=== PATIENT | female | born 1940 | race Caucasian/White ===

== ENCOUNTER 2016-08-30 10:19 | Day surgery (SDC) | payer MEDICARE ==
[2016-08-24 14:30] VITALS: BMI 23.6
[2016-08-30 11:08] VITALS: RESP 16; TEMP 97.6
[2016-08-30] MEDS: LACTATED RINGERS 1,000 ML IV SCH ×2 (11:18→11:37)
[2016-08-30] MEDS ORDERED: LIDOCAINE 1% INJ 10MG/ML (20 ML MDV) ONE (11:37)
[2016-08-30] MEDS ORDERED: PROPOFOL 10 MG/ML 20 ML VIAL IV ONE (11:37)
[2016-08-30] MEDS ORDERED: ePHEDrine 50 MG/ML 1 ML AMP ONE (11:37)
--- NOTE | 2016-08-30 12:01 | P.PCN ---
Date of Procedure: 08/30/16 Procedure(s) Performed: Procedure: Total colonoscopy. Preoperative diagnosis: Screening for neoplasia. Postoperative diagnosis: Sigmoid diverticulosis with no evidence of acute diverticulitis, strictures, polyps or cancer. Preparation: HalfLytely prep. Sedation: Was provided by anesthesia. Brief clinical history: The patient is a 76-year-old female who is scheduled for this evaluation for screening for neoplasia because of family history of colon cancer and personal history of polyps. She has no abdominal complaints, bleeding or anemia. Procedure: With the patient on her left lateral decubitus position and after informed consent and adequate sedation, the perianal area was inspected and it did not show any fissures or fistulas. There were no masses felt on digital rectal examination. The Olympus CFQ 160L video colonoscope was then inserted in the rectum in the usual fashion and advanced to the cecum. The preparation was good. The mucosa appeared healthy. There were several diverticular orifices seen scattered in the distal sigmoid but I saw no evidence of acute diverticulitis or strictures. No polyps or tumors were seen. I retroflexed endoscope in the rectum then the endoscope was withdrawn. The patient tolerated the procedure well. Plan: The patient was reassured. Discussed dietary measures. At her age, I did not schedule a repeat exam in 5 years and that can be kept as a contingency based on her overall health at that time. She will discuss that with you.
[2016-08-30 12:23] VITALS: BP 142/65; PULSE 60
== END 2016-08-30 12:39 | disposition home or self-care (01) ==
LOC: ORWHC2ENDO 10:19
DX: Z12.11 Encounter for screening for malignant neoplasm of colon (principal); K57.30 Diverticulosis of large intestine without perforation or abscess without bleeding; I10 Essential (primary) hypertension; E78.5 Hyperlipidemia, unspecified; E07.9 Disorder of thyroid, unspecified; M19.90 Unspecified osteoarthritis, unspecified site; R32 Unspecified urinary incontinence; F32.9 Major depressive disorder, single episode, unspecified; F17.200 Nicotine dependence, unspecified, uncomplicated; Z86.010 Personal history of colon polyps; Z80.0 Family history of malignant neoplasm of digestive organs; Z79.82 Long term (current) use of aspirin; Z79.899 Other long term (current) drug therapy
CPT/HCPCS: G0105; J2001; J2704; 99153

== ENCOUNTER → 2017-02-06 | Outpatient (CLI) | payer MEDICARE ==
--- NOTE | 2017-02-07 08:29 | MM ---
Reason for exam: screening (asymptomatic). Last mammogram was performed 1 year and 1 month ago. History: Patient is postmenopausal and history of other cancer. Physical Findings: A clinical breast exam by your physician is recommended on an annual basis and results should be correlated with mammographic findings. MG Screening Mammo w CAD Bilateral CC and MLO view(s) were taken. Prior study comparison: December 29, 2015, bilateral MG screening mammo w CAD. October 07, 2014, bilateral MG screening mammo w CAD. October 06, 2013, bilateral digital screening mammo w/CAD. There are scattered fibroglandular densities. Finding: There are typically benign round calcifications in the right breast. There is no discrete abnormality. ASSESSMENT: Benign, BI-RAD 2 RECOMMENDATION: Routine screening mammogram of both breasts in 1 year.
== END | disposition home or self-care (01) ==
LOC: RADMAMWWP 12:25
PROVIDERS: ATTEND Family Medicine
DX: Z12.31 Encounter for screening mammogram for malignant neoplasm of breast (principal)

== ENCOUNTER → 2018-02-21 | Outpatient (CLI) | payer MEDICARE ==
--- NOTE | 2018-03-03 11:48 | MM ---
Reason for exam: screening (asymptomatic). Last mammogram was performed 1 year ago. History: Patient is postmenopausal and history of other cancer. Physical Findings: A clinical breast exam by your physician is recommended on an annual basis and results should be correlated with mammographic findings. MG 3D Screening Mammo W/Cad Bilateral CC and MLO view(s) were taken. Prior study comparison: February 06, 2017, bilateral MG screening mammo w CAD. December 29, 2015, bilateral MG screening mammo w CAD. The breast tissue is heterogeneously dense. This may lower the sensitivity of mammography. There is no discrete abnormality. No significant changes when compared with prior studies. ASSESSMENT: Negative, BI-RAD 1 RECOMMENDATION: Routine screening mammogram of both breasts in 1 year.
== END | disposition home or self-care (01) ==
LOC: RADMAMWWP 11:40
PROVIDERS: ATTEND Family Medicine
DX: Z12.31 Encounter for screening mammogram for malignant neoplasm of breast (principal)
CPT/HCPCS: 77063; 77067

== ENCOUNTER → 2019-02-09 | Outpatient (CLI) | payer MEDICARE ==
--- NOTE | 2019-02-09 11:17 | XR ---
EXAMINATION TYPE: XR chest 2V DATE OF EXAM: 02/09/2019 COMPARISON: NONE TECHNIQUE: PA and lateral views submitted. HISTORY: COPD FINDINGS: The lungs are clear and there is no pneumothorax, pleural effusion, or focal pneumonia. Biapical pl eural thickening. Atherosclerotic change aorta. Hyperinflation suggests COPD. No overt failure. IMPRESSION: 1. No acute process. Correlate for COPD.
== END | disposition home or self-care (01) ==
LOC: RADXRMAIN 10:27
PROVIDERS: ATTEND Family Medicine
DX: J44.9 Chronic obstructive pulmonary disease, unspecified (principal)
CPT/HCPCS: 71046

== ENCOUNTER 2019-04-20 10:13 | Observation (INO) | payer MEDICARE ==
[2019-04-20] MEDS ORDERED: ASPIRIN 81 MG PO STA (10:38)
[2019-04-20] MEDS ORDERED: NITROGLYCERIN OINT 1 INCH/GM PACKET TOPICAL STA (10:38)
--- NOTE | 2019-04-20 10:45 | ED ---
General Adult HPI - General Chief complaint: Chest Pain Stated complaint: chest discomfort Time Seen by Provider: 04/20/19 10:15 Source: patient, RN notes reviewed Mode of arrival: ambulatory Limitations: no limitations - History of Present Illness Initial comments: This is an 79-year-old female presents emergency Department complaining of chest pain. Patient states at 3:30 this morning she started having chest pain lasts about 45 minutes. Patient states his discomfort not a very sharp pain. Patient states he went away she woke up and at 8:30 she had pain again it lasted about half an hour again it was significant discomfort but no sharp pain. Patient states still there is very little residual heaviness on her chest. Patient denies any radiation of the pain. Patient denies any shortness of breath or difficulty breathing. Patient denies any diaphoretic episodes. Patient denies any nausea. Patient denies any abdominal pain patient denies any vomiting or diarrhea. Patient denies any recent fever chills or cough. Patient states she has a 62 year history of smoking. Patient denies any swelling to the legs or calf tenderness. Patient denies any lightheadedness dizziness nursing about so. Patient denies headache patient denies numbness weakness. - Related Data Home Medications Medication Instructions Recorded Confirmed Levothyroxine Sodium [Synthroid] 25 mcg PO DAILY 08/24/16 04/20/19 Lovastatin [Mevacor] 10 mg PO W/SUPPER 08/24/16 04/20/19 [place]-3 Fatty Acids/Fish Oil [Fish 2 cap PO HS 08/24/16 04/20/19 Oil 1,000 mg Softgel] amLODIPine BES/OLMESARTAN MED 1 tab PO W/SUPPER 08/24/16 04/20/19 [amLODIPine BES/OLMESARTAN MED 10-20 mg] Oxybutynin Chloride [Ditropan XL] 5 mg PO DAILY 04/20/19 04/20/19 Allergies Allergy/AdvReac Type Severity Reaction Status Date / Time No Known Allergies Allergy Verified 04/20/19 10:50 Review of Systems ROS Statement: Those systems with pertinent positive or pertinent negative responses have been documented in the HPI. ROS Other: All systems not noted in ROS Statement are negative. Past Medical History Past Medical History: Cancer, Hyperlipidemia, Hypertension, Osteoarthritis (OA), Thyroid Disorder Additional Past Medical History / Comment(s): urinary incontinence, hx skin cancer History of Any Multi-Drug Resistant Organisms: None Reported Past Surgical History: Hysterectomy, Orthopedic Surgery Additional Past Surgical History / Comment(s): skin cancer removed from nose and shoulder, misael cataracts, rotator cuff left shoulder Past Anesthesia/Blood Transfusion Reactions: No Reported Reaction Past Psychological History: Depression Smoking Status: Current every day smoker Past Alcohol Use History: None Reported Past Drug Use History: None Reported - Past Family History Mother Family Medical History: Cancer Additional Family Medical History / Comment(s): colon General Exam - General Exam Comments Initial Comments: GENERAL: Patient is well-developed and well-nourished. Patient is nontoxic and well- hydrated and is in mild distress. ENT: Neck is soft and supple. No significant lymphadenopathy is noted. Oropharynx is clear. Moist mucous membranes. Neck has full range of motion without elicit ing any pain. EYES: The sclera were anicteric and conjunctiva were pink and moist. Extraocular m ovements were intact and pupils were equal round and reactive to light. Eyelids were unremarkable. PULMONARY: Unlabored respirations. Good breath sounds bilaterally. No audible rales rhonchi or wheezing was noted. CARDIOVASCULAR: There is a regular rate and rhythm without any murmurs gallops or rubs. ABDOMEN: Soft and nontender with normal bowel sounds. No palpable organomegaly was noted. There is no palpable pulsatile mass. SKIN: Skin is clear with no lesions or rashes and otherwise unremarkable. NEUROLOGIC: Patient is alert and oriented x3. Cranial nerves II through XII are grossly intact. Motor and sensory are also intact. Normal speech, volume and content. Symmetrical smile. MUSCULOSKELETAL: Normal extremities with adequate strength and full range of motion. No lower extremity swelling or edema. No calf tenderness. LYMPHATICS: No significant lymphadenopathy is noted PSYCHIATRIC: Normal psychiatric evaluation. Limitations: no limitations Course Vital Signs 04/20/19 10:16 Temperature 97.8 F Pulse Rate 69 Respiratory 17 Rate Blood Pressure 161/84 O2 Sat by Pulse 99 Oximetry Medical Decision Making - Medical Decision Making EKG shows normal sinus rhythm at 64 bpm ME interval is on a 48 QRSs 86 QT interval 412 QTC is 425. Patient's EKG shows no ST segment elevation or depression. Patient's chest x-ray shows no acute abnormalities. I went back into the room and I discussed results with the patient and family she was no longer having any discomfort at this time. I started the patient on heparin because of unstable angina. I spoke with Dr. Rivera agreed to admit the patient admitted the patient I wrote admitting orders I continued heparin and aspirin Nitropaste on the floor. - Lab Data Result diagrams: 04/20/19 10:30 04/20/19 10:30 Lab Results 04/20/19 04/20/19 04/20/19 Range/Units 10:30 10:30 10:30 WBC 5.2 (3.8-10.6) k/uL RBC 4.45 (3.80-5.40) m/uL Hgb 13.6 (11.4-16.0) gm/dL Hct 40.7 (34.0-46.0) % MCV 91.6 (80.0-100.0) fL MCH 30.5 (25.0-35.0) pg MCHC 33.3 (31.0-37.0) g/dL RDW 13.3 (11.5-15.5) % Plt Count 182 (150-450) k/uL Neutrophils % 64 % Lymphocytes % 28 % Monocytes % 4 % Eosinophils % 1 % Basophils % 1 % Neutrophils # 3.3 (1.3-7.7) k/uL Lymphocytes # 1.5 (1.0-4.8) k/uL Monocytes # 0.2 (0-1.0) k/uL Eosinophils # 0.1 (0-0.7) k/uL Basophils # 0.0 (0-0.2) k/uL PT 10.0 (9.0-12.0) sec INR 0.9 (<1.2) APTT 23.6 (22.0-30.0) sec Sodium 140 (137-145) mmol/L Potassium 3.9 (3.5-5.1) mmol/L Chloride 105 (98-107) mmol/L Carbon Dioxide 27 (22-30) mmol/L Anion Gap 8 mmol/L BUN 12 (7-17) mg/dL Creatinine 0.53 (0.52-1.04) mg/dL Est GFR (CKD-EPI)AfAm >90 (>60 ml/min/1.73 sqM) Est GFR (CKD-EPI)NonAf 90 (>60 ml/min/1.73 sqM) Glucose 96 (74-99) mg/dL Calcium 9.7 (8.4-10.2) mg/dL Magnesium 1.9 (1.6-2.3) mg/dL Total Bilirubin 0.5 (0.2-1.3) mg/dL AST 24 (14-36) U/L ALT 18 (9-52) U/L Alkaline Phosphatase 115 (38-126) U/L Troponin I (0.000-0.034) ng/mL Total Protein 7.0 (6.3-8.2) g/dL Albumin 4.6 (3.5-5.0) g/dL 04/20/19 Range/Units 10:30 WBC (3.8-10.6) k/uL RBC (3.80-5.40) m/uL Hgb (11.4-16.0) gm/dL Hct (34.0-46.0) % MCV (80.0-100.0) fL MCH (25.0-35.0) pg MCHC (31.0-37.0) g/dL RDW (11.5-15.5) % Plt Count (150-450) k/uL Neutrophils % % Lymphocytes % % Monocytes % % Eosinophils % % Basophils % % Neutrophils # (1.3-7.7) k/uL Lymphocytes # (1.0-4.8) k/uL Monocytes # (0-1.0) k/uL Eosinophils # (0-0.7) k/uL Basophils # (0-0.2) k/uL PT (9.0-12.0) sec INR (<1.2) APTT (22.0-30.0) sec Sodium (137-145) mmol/L Potassium (3.5-5.1) mmol/L Chloride (98-107) mmol/L Carbon Dioxide (22-30) mmol/L Anion Gap mmol/L BUN (7-17) mg/dL Creatinine (0.52-1.04) mg/dL Est GFR (CKD-EPI)AfAm (>60 ml/min/1.73 sqM) Est GFR (CKD-EPI)NonAf (>60 ml/min/1.73 sqM) Glucose (74-99) mg/dL Calcium (8.4-10.2) mg/dL Magnesium (1.6-2.3) mg/dL Total Bilirubin (0.2-1.3) mg/dL AST (14-36) U/L ALT (9-52) U/L Alkaline Phosphatase (38-126) U/L Troponin I <0.012 (0.000-0.034) ng/mL Total Protein (6.3-8.2) g/dL Albumin (3.5-5.0) g/dL Critical Care Time Critical Care Time: Yes Total Critical Care Time: 35 Disposition Clinical Impression: Unstable angina pectoris Disposition: ADMITTED IP TO THIS HOSP Referrals: Willie Canada DO [Primary Care Provider] - 1-2 days Time of Disposition: 11:58
[2019-04-20 11:08] LABS: Basophils % (A) 1 %; Eosinophils # (A) 0.1 k/uL (0-0.7); Eosinophils % (A) 1 %; HCT 40.7 % (34.0-46.0); HGB 13.6 gm/dL (11.4-16.0); Lymphocytes # (A) 1.5 k/uL (1.0-4.8); Lymphocytes % (A) 28 %; MCH 30.5 pg (25.0-35.0); MCHC 33.3 g/dL (31.0-37.0); MCV 91.6 fL (80.0-100.0); Monocytes # (A) 0.2 k/uL (0-1.0); Monocytes % (A) 4 %; Neutrophils # (A) 3.3 k/uL (1.3-7.7); Neutrophils % (A) 64 %; Platelet Count 182 k/uL (150-450); RBC 4.45 m/uL (3.80-5.40); RDW 13.3 % (11.5-15.5); WBC 5.2 k/uL (3.8-10.6)
[2019-04-20 11:17] LABS: ALT 18 U/L (9-52); AST 24 U/L (14-36); African American GFR (CKD) >90 (>60 ml/min/1.73 sqM); Albumin 4.6 g/dL (3.5-5.0); Alkaline Phosphatase 115 U/L (38-126); Anion Gap 8 mmol/L; Blood Urea Nitrogen 12 mg/dL (7-17); Calcium 9.7 mg/dL (8.4-10.2); Carbon Dioxide 27 mmol/L (22-30); Chloride 105 mmol/L (98-107); Glucose 96 mg/dL (74-99); Magnesium 1.9 mg/dL (1.6-2.3); Potassium 3.9 mmol/L (3.5-5.1); Sodium 140 mmol/L (137-145); Total Bilirubin 0.5 mg/dL (0.2-1.3)
[2019-04-20 11:19] LABS: INR 0.9 (<1.2); Partial Thromboplastin Time 23.6 sec (22.0-30.0)
--- NOTE | 2019-04-20 11:27 | XR ---
EXAMINATION TYPE: XR chest 2V DATE OF EXAM: 04/20/2019 COMPARISON: NONE HISTORY: Chest pain TECHNIQUE: Frontal and lateral views of the chest are obtained. FINDINGS: There is no focal air space opacity, pleural effusion, or pneumothorax seen. Pulmonary hyp erinflation of underlying COPD is seen. The cardiac silhouette size is within normal limits. Aorta i s densely calcified. The osseous structures are intact. Mild multilevel degenerative changes of the s pine. IMPRESSION: No acute cardiopulmonary process. Underlying COPD. Densely calcified aorta noted.
[2019-04-20] MEDS ORDERED: HEPARIN SODIUM,PORCINE 5,000 UNIT/ML 1 ML VIAL IV ONE (11:54)
[2019-04-20] MEDS ORDERED: NITROGLYCERIN SL TABS 0.4 MG TAB SUBLINGUAL PRN (11:59)
[2019-04-20] MEDS ORDERED: HEPARIN SOD,PORK IN 0.45% NACL 25,000 UNIT in 0.45% NACL 1 250ML.BAG IV SCH (12:00)
[2019-04-20 12:58] VITALS: RESP 18
[2019-04-20] MEDS ORDERED: INFLUENZA VACCINE (6 MOS+) 60 MCG/0.5 ML SYRINGE IM ONE (13:54)
--- NOTE | 2019-04-20 14:47 | P.CRDCN ---
History of Present Illness History of present illness: This is a pleasant 79-year-old female past medical history significant for hypertension, dyslipidemia, hypothyroidism, COPD and chronic nicotine dependence. She denies prior history of coronary artery disease. 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 She states she underwent a stress test approximately 6 years ago prior to left shoulder surgery. We have been aske d to see her in consultation for chest pain. She states she was woken up around 0300 this morning with a pressure sensation in the mid-sternal region. There was no radiation or associated symptoms. The pain lasted approximately 45 minutes, subsided on its own and she fell back to sleep. She woke up at 0600 feeling normal with no discomfort. Then around 0830 she started feeling a pressure in her chest again. Similar in nature however less intense. Again there was no radiation or associated symptoms. This episodes lasted 15 minutes. She is seen and examined sitting up in bed eating lunch. She denies any further episodes of chest discomfort. EKG reveals sinus mechanism heart rate 64, no acute ST or T-wave abnormalities noted. Chest xray negative for an acute cardiopulmonary process, hyperinflation noted and densely calcified aorta. Laboratory data reviewed, CBC unremarkable, sodium 140, potassium 3.9, creatinine 0.53, magnesium 1.9, troponin negative x1. Current daily cardiac medications include amlodipine/olmesartan 10/20 mg daily and lovastatin 10 mg daily. At the time of my exam: CONSTITUTIONAL: Denies fever. Denies chills. EYES: Denies blurred vision. Denies vision changes. Denies eye pain. EARS, NOSE, MOUTH & THROAT: Denies headache. Denies sore throat. Denies ear pain. CARDIOVASCULAR: Denies chest pain. Denies shortness of breath. Denies orthopnea. Denies PND. Denies palpitations. RESPIRATORY: Denies cough. GASTROINTESTINAL: Denies abdominal pain. Denies diarrhea. Denies constipation. Denies nausea. Denies vomiting. MUSCULOSKELETAL: Denies myalgias. INTEGUMENTARY: Denies pruitis. Denies rash. NEUROLOGIC: Denies numbness. Denies tingling. Denies weakness. PSYCHIATRIC: Denies anxiety. Denies depression. ENDOCRINE: Denies fatigue. Denies weight change. Denies polydipsia. Denies polyurina. GENITOURINARY: Denies burning, hematuria or urgency with micturation. HEMATOLOGIC: Denies history of anemia. Denies bleeding. GENERAL: This is a 79-year-old female in no apparent distress at the time of my examination. HEENT: Head is atraumatic, normocephalic. Pupils are equal, round. Sclerae anicteric. Conjunctivae are clear. Mucous membranes of the mouth are moist. Neck is supple. There is no jugular venous distention. No carotid bruit is heard. LUNGS: Clear to auscultation no wheezes, rales or rhonchi. No chest wall tenderness is noted on palpation or with deep breathing. HEART: Regular rate and rhythm without murmurs, rubs or gallops. S1 and S2 hea rd. ABDOMEN: Soft, nontender. Bowel sounds are heard. No organomegaly noted. EXTREMITIES: No evidence of peripheral edema and no calf tenderness noted. VASCULAR: Radial and dorsalis pedis pulses palpated, no evidence of clubbing. NEUROLOGIC: Patient is awake, alert and oriented x3. ASSESSMENT Chest pain Hypertension Dyslipidemia COPD Chronic nicotine dependence PLAN Continue to obtain serial cardiac enzymes to rule out an acute event. Continue heparin infusion. Obtain 2D echocardiogram and doppler study to assess cardiac structure and function. Decrease aspirin to 81 mg daily. Resume amlodipine/olmesartan and lovastatin as previously ordered. Will consider stress testing or coronary angiography depending on clinical course. Thank you kindly for this consultation. Nurse Practitioner note has been reviewed, I agree with a documented findings and plan of care. Patient was seen and examined. Past Medical History Past Medical History: Cancer, Hyperlipidemia, Hypertension, Osteoarthritis (OA), Thyroid Disorder Additional Past Medical History / Comment(s): urinary incontinence, hx skin cancer History of Any Multi-Drug Resistant Organisms: None Reported Past Surgical History: Hysterectomy, Orthopedic Surgery Additional Past Surgical History / Comment(s): skin cancer removed from nose and shoulder, misael cataracts, rotator cuff left shoulder Past Anesthesia/Blood Transfusion Reactions: No Reported Reaction Past Psychological History: Depression Smoking Status: Current every day smoker Past Alcohol Use History: None Reported Past Drug Use History: None Reported - Past Family History Mother Family Medical History: Cancer Additional Family Medical History / Comment(s): colon Father History Unknown: Yes Additional Family Medical History / Comment(s): Pt was raised by her step father. Medications and Allergies Home Medications Medication Instructions Recorded Confirmed Type Levothyroxine Sodium [Synthroid] 25 mcg PO DAILY 08/24/16 04/20/19 History Lovastatin [Mevacor] 10 mg PO W/SUPPER 08/24/16 04/20/19 History [place]-3 Fatty Acids/Fish Oil [Fish 2 cap PO HS 08/24/16 04/20/19 History Oil 1,000 mg Softgel] amLODIPine BES/OLMESARTAN MED 1 tab PO W/SUPPER 08/24/16 04/20/19 History [amLODIPine BES/OLMESARTAN MED 10-20 mg] Oxybutynin Chloride [Ditropan XL] 5 mg PO DAILY 04/20/19 04/20/19 History Allergies Allergy/AdvReac Type Severity Reaction Status Date / Time No Known Allergies Allergy Verified 04/20/19 10:50 Physical Exam Vitals: Vital Signs Temp Pulse Pulse Resp BP BP Pulse Ox 04/20/19 13:29 96 04/20/19 13:20 97.9 F 51 L 18 171/66 99 04/20/19 12:57 97.9 F 56 L 18 160/77 99 04/20/19 12:00 70 18 148/127 96 04/20/19 11:50 56 L 16 148/127 100 04/20/19 11:40 65 12 148/127 100 04/20/19 11:30 56 L 17 169/84 100 04/20/19 11:20 169/84 04/20/19 11:10 64 9 L 169/84 100 04/20/19 11:00 56 L 11 L 182/72 99 04/20/19 10:50 64 11 L 04/20/19 10:40 60 11 L 100 04/20/19 10:30 98 04/20/19 10:16 97.8 F 69 17 161/84 99 Intake and Output 04/19/19 04/20/19 04/20/19 22:59 06:59 14:59 Other: Voiding Method Toilet # Voids 1 Weight 55.338 kg Results 04/20/19 10:30 04/20/19 10:30 Cardiac Enzymes 04/20/19 04/20/19 Range/Units 10:30 10:30 AST 24 (14-36) U/L Troponin I <0.012 (0.000-0.034) ng/mL Coagulation 04/20/19 Range/Units 10:30 PT 10.0 (9.0-12.0) sec APTT 23.6 (22.0-30.0) sec CBC 04/20/19 Range/Units 10:30 WBC 5.2 (3.8-10.6) k/uL RBC 4.45 (3.80-5.40) m/uL Hgb 13.6 (11.4-16.0) gm/dL Hct 40.7 (34.0-46.0) % Plt Count 182 (150-450) k/uL Comprehensive Metabolic Panel 04/20/19 Range/Units 10:30 Sodium 140 (137-145) mmol/L Potassium 3.9 (3.5-5.1) mmol/L Chloride 105 (98-107) mmol/L Carbon Dioxide 27 (22-30) mmol/L BUN 12 (7-17) mg/dL Creatinine 0.53 (0.52-1.04) mg/dL Glucose 96 (74-99) mg/dL Calcium 9.7 (8.4-10.2) mg/dL AST 24 (14-36) U/L ALT 18 (9-52) U/L Alkaline Phosphatase 115 (38-126) U/L Total Protein 7.0 (6.3-8.2) g/dL Albumin 4.6 (3.5-5.0) g/dL Current Medications Generic Name Dose Route Start Last Admin Trade Name Freq PRN Reason Stop Dose Admin Aspirin 81 mg 04/21/19 09:00 Aspirin PO DAILY [facility] Heparin Sodium/Sodium Chloride 250 mls @ 6.641 mls/hr 04/20/19 12:00 04/20/19 12:37 25,000 unit/ Sodium Chloride IV 12 units/kg/hr .Q24H YANIRA 6.641 mls/hr Administration Protocol 12 UNITS/KG/HR Nitroglycerin 0.4 mg 04/20/19 11:59 Nitrostat SUBLINGUAL Q5M PRN Chest Pain Nitroglycerin 1 inch 04/20/19 18:00 Nitro-Bid Oint TOPICAL Q6HR [facility] Non-Formulary Medication 1 tab 04/20/19 17:30 Amlodipine Bes/Olmesartan Med [Amlodipine Bes/Olmesartan Med 10-20 Mg] PO W/SUPPER [facility] Non-Formulary Medication 10 mg 04/20/19 17:30 Lovastatin [Mevacor] PO W/SUPPER YANIRA Intake and Output 04/19/19 04/20/19 04/20/19 22:59 06:59 14:59 Other: Voiding Method Toilet # Voids 1 Weight 55.338 kg Patient Weight 04/21/19 06:59 Weight 55.338 kg 04/20/19 10:30 04/20/19 10:30
[2019-04-20] MEDS ORDERED: amLODIPine 10 MG TAB PO SCH (17:30)
[2019-04-20] MEDS ORDERED: LOSARTAN 50 MG TAB PO SCH (17:30)
[2019-04-20] MEDS ORDERED: ATORVASTATIN 10 MG TAB PO SCH (17:30)
[2019-04-20] MEDS: NITROGLYCERIN OINT 1 INCH/GM PACKET TOPICAL SCH ×2 (21:20→23:03)
--- NOTE | 2019-04-20 21:49 | P.HPIM ---
History of Present Illness H&P Date: 04/20/19 Chief Complaint: Chest pain History of presenting complaint: This is a very pleasant 79-year-old patient of Dr. Canada. Chronic stable medical conditions include hyperlipidemia, hypertension, osteoarthritis, hypothyroid, urinary incontinence. Patient lives with her . Workup about 3 AM with a pressure across the chest lasting for good for 30 minutes. Did subside on its own. No radiation. No dizziness no lightheadedness. No shortness of breath no perspiration. No tightness. Patient had some of these occasionally off and on but nothing so specific. Denies any prior cardiac history. Cardiology was consulted. Patient is very keen to go home first in the morning as she is concerned about her . Initial cardiac enzymes was negative. She is an active smoker. Patient did get a bit short winded with excessive activity. Review of systems: GEN.: None EYES: None HEENT: None NECK: None RESPIRATORY: Short of breath with exertion CARDIOVASCULAR: As above GASTROINTESTINAL: None GENITOURINARY: None MUSCULOSKELETAL: Pain in the joints LYMPHATICS: None HEMATOLOGICAL: None PSYCHIATRY: None NEUROLOGICAL: None Social history: . No alcohol. Smokes a pack a day for close to 63 years. Physical examination: VITAL SIGNS: 97.8, 69, 17, 161 with 84, 99% room air GENERAL: BMI 20.9, sitting up in bed, not in distress. EYES: Pupils equal. Conjunctiva normal. HEENT: External appearance of nose and ears normal, oral cavity grossly normal. NECK: JVD not raised; masses not palpable. HEART: First and second heart sounds are normal; no edema. LUNGS: Respiratory rate normal; decreased breath sounds. ABDOMEN: Soft, nontender, liver spleen not palpable, no masses palpable. PSYCH: Alert and oriented x3; mood and affect normal. NEUROLOGICAL: Cranial nerves grossly intact; no facial asymmetry, power and sensation grossly intact. LYMPHATICS: No lymph nodes palpable in the axilla and neck MUSCULAR schedule: Evidence of OA especially in the hands INVESTIGATIONS, reviewed in the clinical context: White count 5.2 hemoglobin 13.6 platelets 182 potassium 3.9 creatinine 0.53 Troponin I 2 negative EKG tracing personally reviewed by me-normal sinus rhythm Chest x-ray film personally reviewed by me-hyperinflated lungs with tubular heart Assessment: -Possible unstable angina in a patient with known cardiac risk factors of hyperl ipidemia, hypertension, age and smoking. -Chronic nicotine dependence patient cigarette smoker -Hyperlipidemia -Essential hypertension -Primary osteoarthritis -Hypothyroid -Chronic urinary incontinence Plan: Home medications are renewed. Patient is put on aspirin. IV heparin. Serial cardiac enzymes in place. If negative patient will need a stress test. Care was discussed with the patient. Questions were answered. Past Medical History Past Medical History: Cancer, Hyperlipidemia, Hypertension, Osteoarthritis (OA), Thyroid Disorder Additional Past Medical History / Comment(s): urinary incontinence, hx skin cancer History of Any Multi-Drug Resistant Organisms: None Reported Past Surgical History: Hysterectomy, Orthopedic Surgery Additional Past Surgical History / Comment(s): skin cancer removed from nose and shoulder, misael cataracts, rotator cuff left shoulder Past Anesthesia/Blood Transfusion Reactions: No Reported Reaction Past Psychological History: Depression Smoking Status: Current every day smoker Past Alcohol Use History: None Reported Past Drug Use History: None Reported - Past Family History Mother Family Medical History: Cancer Additional Family Medical History / Comment(s): colon Father History Unknown: Yes Additional Family Medical History / Comment(s): Pt was raised by her step father. Medications and Allergies Home Medications Medication Instructions Recorded Confirmed Type Levothyroxine Sodium [Synthroid] 25 mcg PO DAILY 08/24/16 04/20/19 History Lovastatin [Mevacor] 10 mg PO W/SUPPER 08/24/16 04/20/19 History [place]-3 Fatty Acids/Fish Oil [Fish 2 cap PO HS 08/24/16 04/20/19 History Oil 1,000 mg Softgel] amLODIPine BES/OLMESARTAN MED 1 tab PO W/SUPPER 08/24/16 04/20/19 History [amLODIPine BES/OLMESARTAN MED 10-20 mg] Oxybutynin Chloride [Ditropan XL] 5 mg PO DAILY 04/20/19 04/20/19 History Allergies Allergy/AdvReac Type Severity Reaction Status Date / Time No Known Allergies Allergy Verified 04/20/19 10:50 Physical Exam Vitals: Vital Signs Temp Pulse Pulse Resp BP BP Pulse Ox 04/20/19 19:06 97.8 F 60 18 122/62 97 04/20/19 14:49 96 04/20/19 13:29 96 04/20/19 13:20 97.9 F 51 L 18 171/66 99 04/20/19 12:57 97.9 F 56 L 18 160/77 99 04/20/19 12:00 70 18 148/127 96 04/20/19 11:50 56 L 16 148/127 100 04/20/19 11:40 65 12 148/127 100 04/20/19 11:30 56 L 17 169/84 100 04/20/19 11:20 169/84 04/20/19 11:10 64 9 L 169/84 100 04/20/19 11:00 56 L 11 L 182/72 99 04/20/19 10:50 64 11 L 04/20/19 10:40 60 11 L 100 04/20/19 10:30 98 04/20/19 10:16 97.8 F 69 17 161/84 99 Intake and Output 04/20/19 04/20/19 04/20/19 06:59 14:59 22:59 Intake Total 41.949 Balance 41.949 Intake: Intake, IV Titration 41.949 Amount Heparin Sod,Pork in 0.45% 41.949 NaCl 25,000 unit In 0.45 % NaCl 1 250ml.bag @ 12 UNITS/KG/HR 6.641 mls/hr IV .Q24H YANIRA Rx#: [id number] Other: Voiding Method Toilet Toilet # Voids 1 Weight 55.338 kg Results CBC & Chem 7: 04/20/19 10:30 04/20/19 10:30 Labs: Abnormal Lab Results - Last 24 Hours (Table) 04/20/19 Range/Units 17:35 APTT 30.4 H (22.0-30.0) sec Thrombosis Risk Factor Assmnt - Choose All That Apply Any of the Below Risk Factors Present?: Yes Each Factor Represents 1 point: Abnormal pulmonary function (COPD) Other Risk Factors: Yes Each Risk Factor Represents 2 Points: Malignancy Each Risk Factor Represents 3 Points: Age 75 years or older Other congenital or acquired thrombophilia - If yes, enter type in comment: No Thrombosis Risk Factor Assessment Total Risk Factor Score: 6 Thrombosis Risk Factor Assessment Level: High Risk
[2019-04-21] MEDS: NITROGLYCERIN OINT 1 INCH/GM PACKET TOPICAL SCH (04:25)
[2019-04-21] MEDS ORDERED: LEVOTHYROXINE 50 MCG TAB PO SCH (06:30)
[2019-04-21 07:15] VITALS: BP 146/68; PULSE 54; TEMP 98
[2019-04-21 08:46] LABS: Cholesterol 165 mg/dL (<200); HDL Cholesterol 74 mg/dL (40-60); LDL Cholesterol,Calculated 78 mg/dL (0-99); Triglycerides 65 mg/dL (<150)
[2019-04-21] MEDS ORDERED: OXYBUTYNIN XL 5 MG TAB.ER.24 PO SCH (09:00)
[2019-04-21] MEDS ORDERED: ASPIRIN 325 MG TAB PO SCH (09:00)
[2019-04-21] MEDS ORDERED: ASPIRIN 81 MG PO SCH (09:00)
[2019-04-21] MEDS ORDERED: CAFFEINE CITRATE 60 MG/3 ML VIAL IV PRN (09:45)
[2019-04-21] MEDS ORDERED: SODIUM CHLORIDE 0.9% IV ONE (09:45)
[2019-04-21] MEDS ORDERED: DIPYRIDAMOLE IV ONE (09:45)
[2019-04-21] MEDS ORDERED: AMINOPHYLLINE 500 MG/20 ML VIAL IV PRN (09:45)
[2019-04-21] MEDS ORDERED: PANTOPRAZOLE 40 MG TABLET PO SCH (10:30)
--- NOTE | 2019-04-21 11:28 | ECHOF ---
Referral Reason:cp MEASUREMENTS -------- HEIGHT: 162.6 cm WEIGHT: 55.3 kg BP: 171/66 RVIDd: 3.4 cm (< 3.3) IVSd: 1.0 cm (0.6 - 1.1) LVIDd: 4.5 cm (3.9 - 5.3) LVPWd: 1.1 cm (0.6 - 1.1) IVSs: 1.5 cm LVIDs: 2.8 cm LVPWs: 1.5 cm LA Diam: 2.7 cm (2.7 - 3.8) LAESV Index (A-L): 26.42 ml/m Ao Diam: 3.2 cm (2.0 - 3.7) AV Cusp: 1.7 cm (1.5 - 2.6) MV EXCURSION: 14.881 mm (> 18.000) MV EF SLOPE: 77 mm/s (70 - 150) EPSS: 0.3 cm MV E Ovidio: 0.86 m/s MV DecT: 251 ms MV A Ovidio: 0.98 m/s MV E/A Ratio: 0.88 RAP: 5.00 mmHg RVSP: 36.55 mmHg TAPSE: 24.30 mm FINDINGS -------- Sinus rhythm. This was a technically good study. The left ventricular size is normal. There is borderline concentric left ventricular hypertrophy. Overall left ventricular systolic function is normal with, an EF between 60 - 65 %. The diastolic filling pattern is normal for the age of the patient 13.33. The right ventricle is mildly enlarged. Normal LA size by volume 22+/-6 ml/m2. The right atrium is normal in size. Lipomatous Hypertrophy of the atrial septum is present The aortic valve is trileaflet and appears structurally normal. There is trace to mild mitral regurgitation. Mild tricuspid regurgitation present. There is mild pulmonary hypertension. The right ventricular systolic pressure, as measured by Doppler, is 36.55mmHg. Trace/mild (physiologic) pulmonic regurgitation. The aortic root size is normal. Normal inferior vena cava with normal inspiratory collapse consistent with estimated right atrial pre ssure of 5 mmHg. There is no pericardial effusion. CONCLUSIONS -------- 1. Sinus rhythm. 2. This was a technically good study. 3. The left ventricular size is normal. 4. There is borderline concentric left ventricular hypertrophy. 5. Overall left ventricular systolic function is normal with, an EF between 60 - 65 %. 6. The diastolic filling pattern is normal for the age of the patient 13.33 7. The right ventricle is mildly enlarged. 8. Normal LA size by volume 22+/-6 ml/m2. 9. The right atrium is normal in size. 10. Lipomatous Hypertrophy of the atrial septum is present 11. The aortic valve is trileaflet and appears structurally normal. 12. There is trace to mild mitral regurgitation. 13. Mild tricuspid regurgitation present. 14. There is mild pulmonary hypertension. 15. The right ventricular systolic pressure, as measured by Doppler, is 36.55mmHg. 16. Trace/mild (physiologic) pulmonic regurgitation. 17. The aortic root size is normal. 18. Normal inferior vena cava with normal inspiratory collapse consistent with estimated right atrial pressure of 5 mmHg. 19. There is no pericardial effusion. WEBSITE OPTIMIZATION STRATEGIST: Cecy Lentz RDCS
--- NOTE | 2019-04-21 12:52 | US ---
EXAMINATION TYPE: US gallbladder DATE OF EXAM: 04/21/2019 COMPARISON: NONE CLINICAL HISTORY: cp. Chest pain Chest discomfort. EXAM MEASUREMENTS: Liver Length: 11.9 cm Gallbladder Wall: 0.2 cm CBD: 0.9 cm Right Kidney: 9.8 x 3.4 x 4.6 cm Pancreas: partially obscured by bowel gas, portions visualized unremarkable Liver: wnl Gallbladder: echogenic foci could represent non-shadowing stones Evidence for sonographic Petit's sign: No CBD: dilated Right Kidney: wnl There is no ascites. IMPRESSION: Exam is limited. Borderline dilation of the common bile duct. Cholelithiasis.
--- NOTE | 2019-04-21 13:07 | NM ---
EXAMINATION TYPE: NM stress persantine cardiolit DATE OF EXAM: 04/21/2019 COMPARISON: NONE HISTORY: Chest pain TECHNIQUE: After the intravenous administration of 10.2 mCi Tc 99m Sestamibi - Cardiolite resting SP ECT images acquired 60 minutes post injection. The patient received 31.5 mg Persantine, 25.1 mCi Tc 99m Sestamibi - Stress images obtained 40 minute s post injection FINDINGS: Review of stress and rest SPECT images demonstrates no distinct perfusion abnormality. Gated analysi s shows normal wall motion with an estimated left ventricular ejection fraction of 69 %. IMPRESSION: No scintigraphic evidence for reversible ischemia. Consider echocardiographic correlation for elevate d ejection fraction
--- NOTE | 2019-04-22 13:52 | EST ---
EXERCISE STRESS DATE OF SERVICE: 04/21/2019 AGE: 79 SEX: Female HT: 64 WT: 122 PROTOCOL: Persantine Cardiolite STAGE: DURATION OF EXERCISE: HEART RATE REST: 50 BLOOD PRESSURE REST: 186/71 MAXIMUM HEART RATE ACHIEVED: 68 MAXIMUM BLOOD PRESSURE: 145/57 85% MPHR: 100% MPHR: METS: INDICATIONS: Chest pain. CLINICAL INFORMATION: nuclear study was performed. The resting heart rate is 50 beats per minute. The resting blood pressure is 186/71 mmHg. Peak heart rate of 68 was achieved. Maximum blood pressure of 145/57 mmHg was noted. Resting EKG shows normal sinus rhythm with normal TN interval and QRS duration and normal ST-T waves. No ST-segment depression suggestive of ischemia is noted. The results of the nuclear study will follow. SUBHASH / SOFYAN: [id number] /
--- NOTE | 2019-04-22 22:45 | P.DS ---
Providers Date of admission: 04/20/19 11:59 Expected date of discharge: 04/21/19 Attending physician: Bhanu Mendenhall Consults: 04/20/19 11:59 Consult Physician Urgent Consulting Provider: [facility] Consult Reason/Comments: Unstable angina Do you want consulting provider notified?: Yes Primary care physician: Willie Canada [facility] Course: Chief Complaint: Chest pain Hospital course: This is a very pleasant 79-year-old patient of Dr. Canada. Chronic stable medical conditions include hyperlipidemia, hypertension, osteoarthritis, hy pothyroid, urinary incontinence. Patient lives with her . Woke up about 3 AM with a pressure across the chest lasting for good for 30 minutes. Did subside on its own. No radiation. No dizziness no lightheadedness. No shortness of breath no perspiration. No tightness. Patient had some of these occasionally off and on but nothing so specific. Denies any prior cardiac history. Cardiology was consulted. Initial cardiac enzymes was negative. She is an active smoker. Troponins were negative. Nuclear stress test was negative. 2-D echo showed EF of 60-65%. No abdominal symptoms. Care was discussed with the patient. Okay to be discharged by cardiology. Patient advised against smoking. Consultation: Dr. VC Chan from cardiology Physical examination: VITAL SIGNS: 98, 54, 18, 146/68, 96% room air GENERAL: BMI 20.9, sitting up in bed, not in distress. EYES: Pupils equal. Conjunctiva normal. HEENT: External appearance of nose and ears normal, oral cavity grossly normal. NECK: JVD not raised; masses not palpable. HEART: First and second heart sounds are normal; no edema. LUNGS: Respiratory rate normal; decreased breath sounds. ABDOMEN: Soft, nontender, liver spleen not palpable, no masses palpable. PSYCH: Alert and oriented x3; mood and affect normal. INVESTIGATIONS, reviewed in the clinical context: White count 5.2 hemoglobin 13.6 platelets 182 potassium 3.9 creatinine 0.53 Troponin I 2 negative EKG tracing personally reviewed by me-normal sinus rhythm Chest x-ray film personally reviewed by me-hyperinflated lungs with tubular heart Nuclear stress test negative for ischemia 2-D echo EF 55-60% Abdominal ultrasound-gallstones Discharge diagnosis: -Anterior chest wall pain. Possible musculoskeletal.. Negative stress test. -Chronic nicotine dependence patient cigarette smoker -Hyperlipidemia -Essential hypertension -Primary osteoarthritis -Hypothyroid -Chronic urinary incontinence -Gallstones asymptomatic Disposition: Home Patient Condition at Discharge: Stable Plan - Discharge Summary Discharge Rx Participant: No New Discharge Prescriptions: New Aspirin 81 mg PO DAILY chew Continue Levothyroxine Sodium [Synthroid] 25 mcg PO DAILY amLODIPine BES/OLMESARTAN MED [amLODIPine BES/OLMESARTAN MED 10-20 MG] 1 tab PO W/SUPPER Lovastatin [Mevacor] 10 mg PO W/SUPPER [place]-3 Fatty Acids/Fish Oil [Fish Oil 1,000 mg Softgel] 2 cap PO HS Oxybutynin Chloride [Ditropan XL] 5 mg PO DAILY Discharge Medication List Levothyroxine Sodium [Synthroid] 25 mcg PO DAILY 08/24/16 [History] Lovastatin [Mevacor] 10 mg PO W/SUPPER 08/24/16 [History] [place]-3 Fatty Acids/Fish Oil [Fish Oil 1,000 mg Softgel] 2 cap PO HS 08/24/16 [History] amLODIPine BES/OLMESARTAN MED [amLODIPine BES/OLMESARTAN MED 10-20 MG] 1 tab PO W/SUPPER 08/24/16 [History] Oxybutynin Chloride [Ditropan XL] 5 mg PO DAILY 04/20/19 [History] Aspirin 81 mg PO DAILY chew 04/21/19 [Rx] Follow up Appointment(s)/Referral(s): Willie Canada DO [Primary Care Provider] - 1-2 days Mana Chan MD [STAFF PHYSICIAN] - 05/04/19 3:45 pm (follow up with Dr. Chan. patient is to bring insurance card, license, and a list of any medication currently taking.) Patient Instructions/Handouts: Chest Pain (DC) Discharge Disposition: HOME SELF-CARE
== END 2019-04-21 14:55 | disposition home or self-care (01) ==
LOC: EC 10:13 → 1SOBS 11:59
PROVIDERS: ADMIT Hospitalist; ATTEND Hospitalist
DX: R07.89 Other chest pain (principal); E78.5 Hyperlipidemia, unspecified; I10 Essential (primary) hypertension; J44.9 Chronic obstructive pulmonary disease, unspecified; M19.91 Primary osteoarthritis, unspecified site; E03.9 Hypothyroidism, unspecified; R32 Unspecified urinary incontinence; F32.9 Major depressive disorder, single episode, unspecified; K80.20 Calculus of gallbladder without cholecystitis without obstruction; Z53.29 Procedure and treatment not carried out because of patient's decision for other reasons; F17.210 Nicotine dependence, cigarettes, uncomplicated; Z79.890 Hormone replacement therapy; Z79.899 Other long term (current) drug therapy; Z85.828 Personal history of other malignant neoplasm of skin; Z90.710 Acquired absence of both cervix and uterus
CPT/HCPCS: 36415; 71046; 76705; 78452; 80053; 80061; 83735; 84484; 85025; 85610; 85730; 93005; 93017; 93306; 94760; 96365; 96366; 99291

== ENCOUNTER 2020-02-15 16:59 | Inpatient (IN) | payer MEDICARE ==
[2020-02-15] MEDS ORDERED: ACETAMINOPHEN TAB 325 MG TAB PO STA (17:20)
--- NOTE | 2020-02-15 17:34 | ED ---
SOB HPI - General Chief Complaint: Shortness of Breath Stated Complaint: pneumonia Time Seen by Provider: 02/15/20 17:00 Source: patient Mode of arrival: ambulatory Limitations: no limitations - History of Present Illness Initial Comments: Patient is an 79-year-old female with past medical history of hypertension presents emergency room with reported cough and fever. Patient has had symptoms for the past week. Her was sick and 2 weeks ago from pneumonia. She denies productive cough. Reports to increased shortness of breath. Does not were oxygen at home. Patient is a smoker. Smokes one pack a day. Reports to fevers which she will occasionally take Tylenol for. Patient went to [facility] for her symptoms. X-ray was performed which demonstrated a right lower lobe pneumonia. She was given an IM injection of Rocephin. Patient was ambulated and oxygen saturation dropped to 71% and therefore she was urged to going to the closest emergency room for further evaluation. Patient denies home oxygen use. Does not use inhalers. No sick contacts diagnosed with Covid. Denies any chest pain. No headaches or visual changes. No diarrhea or changes in her bowel habits. 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 - Related Data Home Medications Medication Instructions Recorded Confirmed Levothyroxine Sodium [Synthroid] 25 mcg PO DAILY 08/24/16 02/15/20 Lovastatin [Mevacor] 10 mg PO HS 08/24/16 02/15/20 [place]-3 Fatty Acids/Fish Oil [Fish 2 cap PO DAILY 08/24/16 02/15/20 Oil 1,000 mg Softgel] amLODIPine BES/OLMESARTAN MED 1 tab PO DAILY 08/24/16 02/15/20 [amLODIPine BES/OLMESARTAN MED 10-20 MG] Oxybutynin Chloride [Ditropan] 5 mg PO DAILY 02/15/20 02/15/20 Sertraline HCl [Zoloft] 100 mg PO DAILY 02/15/20 02/15/20 Vit C/E/Zn/Coppr/Lutein/Zeaxan 1 cap PO BID 02/15/20 02/15/20 [Preservision Areds 2 Softgel] Allergies Allergy/AdvReac Type Severity Reaction Status Date / Time No Known Allergies Allergy Verified 02/15/20 20:19 Review of Systems ROS Statement: Those systems with pertinent positive or pertinent negative responses have been documented in the HPI. ROS Other: All systems not noted in ROS Statement are negative. Past Medical History Past Medical History: Cancer, Hyperlipidemia, Hypertension, Osteoarthritis (OA), Thyroid Disorder Additional Past Medical History / Comment(s): urinary incontinence, hx skin cancer History of Any Multi-Drug Resistant Organisms: None Reported Past Surgical History: Hysterectomy, Orthopedic Surgery Additional Past Surgical History / Comment(s): skin cancer removed from nose and shoulder, misael cataracts, rotator cuff left shoulder Past Anesthesia/Blood Transfusion Reactions: No Reported Reaction Past Psychological History: Depression Past Alcohol Use History: None Reported Past Drug Use History: None Reported - Past Family History Mother Family Medical History: Cancer Additional Family Medical History / Comment(s): colon Father History Unknown: Yes Additional Family Medical History / Comment(s): Pt was raised by her step father. General Exam Limitations: no limitations Course Vital Signs 02/15/20 02/15/20 02/15/20 17:00 18:08 18:57 Temperature 100.5 F H 99.1 F Pulse Rate 108 H 99 93 Respiratory 20 20 20 Rate Blood Pressure 154/68 173/86 168/76 O2 Sat by Pulse 88 L 96 96 Oximetry 02/15/20 02/15/20 19:28 19:33 Temperature Pulse Rate 96 96 Respiratory Rate Blood Pressure O2 Sat by Pulse Oximetry Medical Decision Making - Medical Decision Making Upon arrival the patient is placed into room 2. A thorough history and physical exam was performed. Patient is placed on 3 L nasal cannula. Laboratory studies were conducted and a repeat chest x-rays performed patient does present and does not bring 1 from urgent care. Sensory is remarkable for a white count of 11.2. LDH is elevated at 840, C-reactive protein 403. Urine is positive for 2+ ketones and 45 red blood cells. Chest x-ray does demonstrate bibasilar pneumonia. Patient did receive a gram of Rocephin at the urgent care. I did give her 500 mg of azithromycin. Patient was also provided with a DuoNeb breathing treatment. I recommended hospital admission for hypoxia for which the patient agreed to. Discussed case with Dr. amta except admission. Patient wasn't transferred to floor in stable condition - Lab Data Result diagrams: 02/15/20 17:45 02/15/20 17:45 Lab Results 02/15/20 02/15/20 02/15/20 Range/Units 17:45 17:45 17:45 WBC 11.2 H (3.8-10.6) k/uL RBC 4.44 (3.80-5.40) m/uL Hgb 12.7 (11.4-16.0) gm/dL Hct 39.8 (34.0-46.0) % MCV 89.6 (80.0-100.0) fL MCH 28.6 (25.0-35.0) pg MCHC 32.0 (31.0-37.0) g/dL RDW 13.5 (11.5-15.5) % Plt Count 279 (150-450) k/uL Neutrophils % 91 % Lymphocytes % 4 % Monocytes % 3 % Eosinophils % 0 % Basophils % 0 % Neutrophils # 10.2 H (1.3-7.7) k/uL Lymphocytes # 0.4 L (1.0-4.8) k/uL Monocytes # 0.4 (0-1.0) k/uL Eosinophils # 0.0 (0-0.7) k/uL Basophils # 0.0 (0-0.2) k/uL PT 9.8 (9.0-12.0) sec INR 0.9 (<1.2) APTT 22.6 (22.0-30.0) sec Sodium 134 L (137-145) mmol/L Potassium 4.2 (3.5-5.1) mmol/L Chloride 101 (98-107) mmol/L Carbon Dioxide 23 (22-30) mmol/L Anion Gap 10 mmol/L BUN 11 (7-17) mg/dL Creatinine 0.44 L (0.52-1.04) mg/dL Est GFR (CKD-EPI)AfAm >90 (>60 ml/min/1.73 sqM) Est GFR (CKD-EPI)NonAf >90 (>60 ml/min/1.73 sqM) Glucose 92 (74-99) mg/dL Plasma Lactic Acid Missael (0.7-2.0) mmol/L Calcium 9.0 (8.4-10.2) mg/dL Magnesium 1.9 (1.6-2.3) mg/dL Total Bilirubin 0.6 (0.2-1.3) mg/dL AST 30 (14-36) U/L ALT 13 (4-34) U/L Alkaline Phosphatase 161 H (38-126) U/L Lactate Dehydrogenase 840 H (313-618) U/L C-Reactive Protein 403.6 H (<10.0) mg/L Total Protein 6.3 (6.3-8.2) g/dL Albumin 3.9 (3.5-5.0) g/dL Urine Color Urine Appearance (Clear) Urine pH (5.0-8.0) Ur Specific [place] (1.001-1.035) Urine Protein (Negative) Urine Glucose (UA) (Negative) Urine Ketones (Negative) Urine Blood (Negative) Urine Nitrite (Negative) Urine Bilirubin (Negative) Urine Urobilinogen (<2.0) mg/dL Ur Leukocyte Esterase (Negative) Urine RBC (0-5) /hpf Urine WBC (0-5) /hpf Ur Squamous Epith Cells (0-4) /hpf Urine Mucus (None) /hpf 02/15/20 02/15/20 Range/Units 17:45 17:51 WBC (3.8-10.6) k/uL RBC (3.80-5.40) m/uL Hgb (11.4-16.0) gm/dL Hct (34.0-46.0) % MCV (80.0-100.0) fL MCH (25.0-35.0) pg MCHC (31.0-37.0) g/dL RDW (11.5-15.5) % Plt Count (150-450) k/uL Neutrophils % % Lymphocytes % % Monocytes % % Eosinophils % % Basophils % % Neutrophils # (1.3-7.7) k/uL Lymphocytes # (1.0-4.8) k/uL Monocytes # (0-1.0) k/uL Eosinophils # (0-0.7) k/uL Basophils # (0-0.2) k/uL PT (9.0-12.0) sec INR (<1.2) APTT (22.0-30.0) sec Sodium (137-145) mmol/L Potassium (3.5-5.1) mmol/L Chloride (98-107) mmol/L Carbon Dioxide (22-30) mmol/L Anion Gap mmol/L BUN (7-17) mg/dL Creatinine (0.52-1.04) mg/dL Est GFR (CKD-EPI)AfAm (>60 ml/min/1.73 sqM) Est GFR (CKD-EPI)NonAf (>60 ml/min/1.73 sqM) Glucose (74-99) mg/dL Plasma Lactic Acid Missael 0.7 (0.7-2.0) mmol/L Calcium (8.4-10.2) mg/dL Magnesium (1.6-2.3) mg/dL Total Bilirubin (0.2-1.3) mg/dL AST (14-36) U/L ALT (4-34) U/L Alkaline Phosphatase (38-126) U/L Lactate Dehydrogenase (313-618) U/L C-Reactive Protein (<10.0) mg/L Total Protein (6.3-8.2) g/dL Albumin (3.5-5.0) g/dL Urine Color Yellow Urine Appearance Clear (Clear) Urine pH 6.0 (5.0-8.0) Ur Specific [place] 1.022 (1.001-1.035) Urine Protein 2+ H (Negative) Urine Glucose (UA) Negative (Negative) Urine Ketones 2+ H (Negative) Urine Blood Small H (Negative) Urine Nitrite Negative (Negative) Urine Bilirubin Negative (Negative) Urine Urobilinogen 4.0 (<2.0) mg/dL Ur Leukocyte Esterase Negative (Negative) Urine RBC 45 H (0-5) /hpf Urine WBC 3 (0-5) /hpf Ur Squamous Epith Cells 1 (0-4) /hpf Urine Mucus Rare H (None) /hpf - EKG Data EKG Comments: EKG demonstrates sinus tachycardia at the ventricular rate of 101. MS interval 148. QRS 84. QTC 435. No acute ST segment elevations or depressions concerning for ischemic changes Disposition Clinical Impression: Pneumonia, SIRS (systemic inflammatory response syndrome), Pyrexia Disposition: ADMITTED IP TO THIS HOSP Condition: Stable Is patient prescribed a controlled substance at d/c from ED?: No Decision to Admit Reason: Admit from EC Decision Date: 02/15/20 Decision Time: 18:22
[2020-02-15] MEDS: SODIUM CHLORIDE 0.9% 500 ML 500 ML IV SCH ×3 (17:58→19:18)
[2020-02-15] MEDS: SODIUM CHLORIDE 0.9% 1,000 ML IV SCH (17:58)
[2020-02-15 18:16] LABS: Basophils % (A) 0 %; Eosinophils % (A) 0 %; HCT 39.8 % (34.0-46.0); HGB 12.7 gm/dL (11.4-16.0); Lymphocytes # (A) 0.4 k/uL (1.0-4.8); Lymphocytes % (A) 4 %; MCH 28.6 pg (25.0-35.0); MCV 89.6 fL (80.0-100.0); Mean Platelet Volume 7.1; Monocytes # (A) 0.4 k/uL (0-1.0); Monocytes % (A) 3 %; Neutrophils # (A) 10.2 k/uL (1.3-7.7); Neutrophils % (A) 91 %; Platelet Count 279 k/uL (150-450); RBC 4.44 m/uL (3.80-5.40); RDW 13.5 % (11.5-15.5); WBC 11.2 k/uL (3.8-10.6)
[2020-02-15] MEDS ORDERED: ACETAMINOPHEN TAB 325 MG TAB PO PRN (18:22)
[2020-02-15] MEDS ORDERED: IBUPROFEN 400 MG TAB PO PRN (18:22)
[2020-02-15] MEDS ORDERED: NALOXONE 0.4 MG/ML 1 ML VIAL IV PRN (18:22)
[2020-02-15] MEDS ORDERED: AZITHROMYCIN 500 MG in SODIUM CHLORIDE 0.9% 250 ML IVPB STA (18:23)
[2020-02-15 18:24] LABS: INR 0.9 (<1.2); Partial Thromboplastin Time 22.6 sec (22.0-30.0); Prothrombin Time 9.8 sec (9.0-12.0)
[2020-02-15 18:29] LABS: ALT 13 U/L (4-34); AST 30 U/L (14-36); African American GFR (CKD) >90 (>60 ml/min/1.73 sqM); Albumin 3.9 g/dL (3.5-5.0); Alkaline Phosphatase 161 U/L (38-126); Anion Gap 10 mmol/L; Blood Urea Nitrogen 11 mg/dL (7-17); Carbon Dioxide 23 mmol/L (22-30); Chloride 101 mmol/L (98-107); Glucose 92 mg/dL (74-99); LDH 840 U/L (313-618); Magnesium 1.9 mg/dL (1.6-2.3); Non-African American GFR(CKD) >90 (>60 ml/min/1.73 sqM); Potassium 4.2 mmol/L (3.5-5.1); Sodium 134 mmol/L (137-145); Total Bilirubin 0.6 mg/dL (0.2-1.3); Total Protein 6.3 g/dL (6.3-8.2)
--- NOTE | 2020-02-15 18:40 | XR ---
EXAMINATION TYPE: XR chest 2V DATE OF EXAM: 02/15/2020 COMPARISON: 04/20/2019 HISTORY: Fever TECHNIQUE: FINDINGS: There is some patchy airspace consolidation in the right lower lobe. There is some linear i nfiltrate and atelectasis lateral aspect left lower lobe. There is also right middle lobe infiltrate. There is some blunting of the right costophrenic angle. Heart size is normal. There are no hilar mas ses. Thoracic aorta is atheromatous. There are chest leads. Bony thorax is intact. IMPRESSION: There is bilateral pneumonia and atelectasis that is new compared to old exam. Small new right pleural effusion.
[2020-02-15] MEDS ORDERED: IPRATROPIUM-ALBUTEROL 3 ML NEB INHALATION STA (18:43)
[2020-02-15 18:53] LABS: Appearance,Urine Clear (Clear); Bilirubin,Urine Negative (Negative); Blood,Urine Small (Negative); Color,Urine Yellow; Glucose,Urine (UA) Negative (Negative); Ketones,Urine 2+ (Negative); Leukocyte Esterase,Urine Negative (Negative); Mucus,Urine Rare /hpf; Nitrite,Urine Negative (Negative); Protein,Urine 2+ (Negative); RBC,Urine 45 /hpf (0-5); Specific Gravity,Urine 1.022 (1.001-1.035); Squamous Epithelial Cell,Urine 1 /hpf (0-4); WBC,Urine 3 /hpf (0-5)
[2020-02-15 19:10] LABS: C Reactive Protein 403.6 mg/L (<10.0)
[2020-02-15] MEDS: IPRATROPIUM-ALBUTEROL 3 ML NEB INHALATION SCH ×2 (19:26→23:10)
[2020-02-16] MEDS: SODIUM CHLORIDE 0.9% 1,000 ML IV SCH ×3 (03:37→12:43)
[2020-02-16] MEDS ORDERED: ALBUTEROL HFA INHALER INHALATION SCH (04:01)
[2020-02-16 05:01] LABS: Ferritin 146.1 ng/mL (10.0-291.0)
[2020-02-16] MEDS: ALBUTEROL HFA INHALER INHALATION SCH ×3 (05:31→11:09)
[2020-02-16] MEDS: IPRATROPIUM-ALBUTEROL 3 ML NEB INHALATION SCH ×3 (05:35→19:36)
[2020-02-16] MEDS: LEVOTHYROXINE 25 MCG TAB PO SCH (05:39)
[2020-02-16 07:35] LABS: Basophils % (A) 0 %; Eosinophils % (A) 0 %; HCT 33.7 % (34.0-46.0); HGB 10.5 gm/dL (11.4-16.0); Lymphocytes # (A) 0.7 k/uL (1.0-4.8); Lymphocytes % (A) 8 %; MCH 28.4 pg (25.0-35.0); MCHC 31.1 g/dL (31.0-37.0); MCV 91.3 fL (80.0-100.0); Monocytes # (A) 0.4 k/uL (0-1.0); Monocytes % (A) 4 %; Neutrophils # (A) 7.8 k/uL (1.3-7.7); Neutrophils % (A) 86 %; Platelet Count 214 k/uL (150-450); RBC 3.69 m/uL (3.80-5.40); RDW 13.6 % (11.5-15.5)
[2020-02-16 07:50] LABS: African American GFR (CKD) >90 (>60 ml/min/1.73 sqM); Anion Gap 5 mmol/L; Blood Urea Nitrogen 7 mg/dL (7-17); Carbon Dioxide 24 mmol/L (22-30); Chloride 107 mmol/L (98-107); Glucose 79 mg/dL (74-99); Non-African American GFR(CKD) >90 (>60 ml/min/1.73 sqM); Potassium 3.9 mmol/L (3.5-5.1); Sodium 136 mmol/L (137-145)
[2020-02-16] MEDS ORDERED: TIOTROPIUM 18 MCG/PUFF INHALER INHALATION SCH (08:00)
[2020-02-16] MEDS: SERTRALINE 100 MG TAB PO SCH (08:02)
[2020-02-16] MEDS: OXYBUTYNIN CHLORIDE 5 MG TAB PO SCH (08:02)
[2020-02-16] MEDS: LOSARTAN 50 MG TAB PO SCH (08:02)
[2020-02-16] MEDS: VIT A,C & E-LUTEIN-MINERALS 1 EACH TAB PO SCH ×2 (08:02→22:09)
[2020-02-16] MEDS: amLODIPine 10 MG TAB PO SCH (08:02)
[2020-02-16] MEDS ORDERED: NON FORMULARY DRUG (Omega-3 Fatty Acids/Fish Oil [Fish Oil 1,000 Mg Softgel] 2 CAP) PO SCH (09:00)
[2020-02-16] MEDS: BUDESONIDE 1 MG/2 ML NEBU INHALATION SCH ×2 (12:16→19:36)
[2020-02-16] MEDS: methylPREDNISolone SOD SUCCI 40 MG/ML 1 ML VIAL IV SCH ×2 (12:42→20:02)
[2020-02-16] MEDS: ENOXAPARIN 40 MG/0.4 ML SYRINGE SQ SCH (12:46)
[2020-02-16] MEDS: guaiFENesin 600 MG TABLET.ER PO SCH ×2 (12:46→20:01)
[2020-02-16 13:07] VITALS: BMI 21.2
--- NOTE | 2020-02-16 19:38 | P.HPIM ---
History of Present Illness H&P Date: 02/16/20 Chief Complaint: Short of breath History of presenting complaint: This is a very pleasant 79-year-old patient of Dr. Canada. Chronic stable medical conditions include hyperlipidemia, hypertension, osteoarthritis, hypothyroid, urinary incontinence. Patient has been 2 weeks ago. Patient for about a week at least been having increasing cough short of breath and wheez ing. Clear sputum. Green in color. Some fever and chills. Tired rundown. Admitted for the same. Patient long-standing smoker. Review of systems: GEN.: Tired EYES: None HEENT: None NECK: None RESPIRATORY: As above CARDIOVASCULAR: As above GASTROINTESTINAL: None GENITOURINARY: None MUSCULOSKELETAL: Pain in the joints LYMPHATICS: None HEMATOLOGICAL: None PSYCHIATRY: None NEUROLOGICAL: None Social history: 2 weeks ago. No alcohol. Smokes a pack a day for close to 63 years. Physical examination: VITAL SIGNS: 100.5, 108, 20, 154/68, 88% on room air GENERAL: BMI 21.3, sitting up in bed, tired EYES: Pupils equal. Conjunctiva normal. HEENT: External appearance of nose and ears normal, oral cavity grossly normal. NECK: JVD not raised; masses not palpable. HEART: First and second heart sounds are normal; no edema. LUNGS: Respiratory rate increased, diminished breath sounds prolonged expiration wheezing, intermittent crackles ABDOMEN: Soft, nontender, liver spleen not palpable, no masses palpable. PSYCH: Alert and oriented x3; mood and affect slightly anxious NEUROLOGICAL: Cranial nerves grossly intact; no facial asymmetry, power and sensation grossly intact. LYMPHATICS: No lymph nodes palpable in the axilla and neck MUSCULAR schedule: Evidence of OA especially in the hands INVESTIGATIONS, reviewed in the clinical context: White count 11.2 hemoglobin 12.7 and repeat 10.5 potassium 4.2 creatinine 0.44 LDH 840 pro-calcitonin 0.16 EKG tracing personally reviewed by me-normal sinus rhythm Chest x-ray film personally reviewed by me-right lower lobe pneumonia Assessment: -Right lower lobe pneumonia, suspect gram-negative orgasm, causing sepsis -Chronic nicotine dependence patient cigarette smoker -Acute COPD exacerbation in a current smoker -Hyperlipidemia -Essential hypertension -Primary osteoarthritis -Hypothyroid -Chronic urinary incontinence -Normocytic anemia-cause unknown Plan: Start the patient on ceftriaxone Zithromax. Inhaled and IV steroids. Mucinex. Sputum to be sent of a Gram stain and culture. Nicotine patch. Home medicat ions and resume. Lovenox for DVT prophylaxis. Smoke cessation counseling: This was done with the patient. Nicotine patch is being given. More than 3 minutes was spent for this Past Medical History Past Medical History: Cancer, COPD, Hyperlipidemia, Hypertension, Osteoarthritis (OA), Pneumonia, Thyroid Disorder Additional Past Medical History / Comment(s): urinary incontinence, hx skin cancer History of Any Multi-Drug Resistant Organisms: None Reported Past Surgical History: Hysterectomy, Orthopedic Surgery Additional Past Surgical History / Comment(s): skin cancer removed from nose and shoulder, misael cataracts, bilat rotator cuff repair Past Anesthesia/Blood Transfusion Reactions: No Reported Reaction Past Psychological History: Depression Additional Psychological History / Comment(s): Pt lives alone, 2 weeks ago. Smoking Status: Current every day smoker Past Alcohol Use History: None Reported Additional Past Alcohol Use History / Comment(s): Pt started smoking in 1956 and is a ppd smoker. Past Drug Use History: None Reported - Past Family History Mother Family Medical History: Cancer Additional Family Medical History / Comment(s): colon Father History Unknown: Yes Additional Family Medical History / Comment(s): Pt was raised by her step father. Medications and Allergies Home Medications Medication Instructions Recorded Confirmed Type Levothyroxine Sodium [Synthroid] 25 mcg PO DAILY 08/24/16 02/15/20 History Lovastatin [Mevacor] 10 mg PO HS 08/24/16 02/15/20 History [place]-3 Fatty Acids/Fish Oil [Fish 2 cap PO DAILY 08/24/16 02/15/20 History Oil 1,000 mg Softgel] amLODIPine BES/OLMESARTAN MED 1 tab PO DAILY 08/24/16 02/15/20 History [amLODIPine BES/OLMESARTAN MED 10-20 MG] Oxybutynin Chloride [Ditropan] 5 mg PO DAILY 02/15/20 02/15/20 History Sertraline HCl [Zoloft] 100 mg PO DAILY 02/15/20 02/15/20 History Vit C/E/Zn/Coppr/Lutein/Zeaxan 1 cap PO BID 02/15/20 02/15/20 History [Preservision Areds 2 Softgel] Allergies Allergy/AdvReac Type Severity Reaction Status Date / Time No Known Allergies Allergy Verified 02/15/20 20:19 Physical Exam Vitals: Vital Signs Temp Pulse Pulse Resp BP BP Pulse Ox 02/16/20 07:00 98.5 F 76 18 133/63 98 02/16/20 03:51 16 02/16/20 00:55 16 02/16/20 00:08 98.4 F 102 H 15 149/73 95 02/15/20 23:20 92 18 02/15/20 23:10 94 18 02/15/20 22:03 16 02/15/20 20:47 99.0 F 92 14 131/62 95 02/15/20 19:33 96 02/15/20 19:28 96 02/15/20 18:57 99.1 F 93 20 168/76 96 02/15/20 18:08 99 20 173/86 96 02/15/20 17:00 100.5 F H 108 H 20 154/68 88 L Intake and Output 02/15/20 02/16/20 02/16/20 22:59 06:59 14:59 Other: Voiding Method Bedside Commode Bedside Commode Diaper Diaper Incontinent Incontinent # Voids 2 Weight 54.431 kg Results CBC & Chem 7: 02/16/20 07:12 02/16/20 07:12 Labs: Abnormal Lab Results - Last 24 Hours (Table) 02/15/20 02/15/20 02/15/20 Range/Units 17:45 17:45 17:45 WBC 11.2 H (3.8-10.6) k/uL RBC (3.80-5.40) m/uL Hgb (11.4-16.0) gm/dL Hct (34.0-46.0) % Neutrophils # 10.2 H (1.3-7.7) k/uL Lymphocytes # 0.4 L (1.0-4.8) k/uL Sodium 134 L (137-145) mmol/L Creatinine 0.44 L (0.52-1.04) mg/dL Calcium (8.4-10.2) mg/dL Alkaline Phosphatase 161 H (38-126) U/L Lactate Dehydrogenase 840 H (313-618) U/L C-Reactive Protein 403.6 H (<10.0) mg/L Procalcitonin 0.16 H (0.02-0.09) ng/mL Urine Protein (Negative) Urine Ketones (Negative) Urine Blood (Negative) Urine RBC (0-5) /hpf Urine Mucus (None) /hpf 02/15/20 02/16/20 02/16/20 Range/Units 17:51 07:12 07:12 WBC (3.8-10.6) k/uL RBC 3.69 L (3.80-5.40) m/uL Hgb 10.5 L (11.4-16.0) gm/dL Hct 33.7 L (34.0-46.0) % Neutrophils # 7.8 H (1.3-7.7) k/uL Lymphocytes # 0.7 L (1.0-4.8) k/uL Sodium 136 L (137-145) mmol/L Creatinine 0.34 L (0.52-1.04) mg/dL Calcium 8.0 L (8.4-10.2) mg/dL Alkaline Phosphatase (38-126) U/L Lactate Dehydrogenase (313-618) U/L C-Reactive Protein (<10.0) mg/L Procalcitonin (0.02-0.09) ng/mL Urine Protein 2+ H (Negative) Urine Ketones 2+ H (Negative) Urine Blood Small H (Negative) Urine RBC 45 H (0-5) /hpf Urine Mucus Rare H (None) /hpf Thrombosis Risk Factor Assmnt - Choose All That Apply Each Factor Represents 1 point: Abnormal pulmonary function (COPD), Serious lung disease incl. pneumonia (< 1month) Each Risk Factor Represents 3 Points: Age 75 years or older Thrombosis Risk Factor Assessment Total Risk Factor Score: 5 Thrombosis Risk Factor Assessment Level: High Risk
[2020-02-16] MEDS: ATORVASTATIN 10 MG TAB PO SCH (20:02)
[2020-02-16] MEDS: FLUTICASONE 220 MCG INHALER INHALATION SCH (23:07)
[2020-02-17] MEDS: methylPREDNISolone SOD SUCCI 40 MG/ML 1 ML VIAL IV SCH ×3 (05:00→20:04)
[2020-02-17] MEDS: LEVOTHYROXINE 25 MCG TAB PO SCH (05:00)
[2020-02-17] MEDS: ALBUTEROL HFA INHALER INHALATION SCH ×4 (08:02→20:43)
[2020-02-17] MEDS: FLUTICASONE 220 MCG INHALER INHALATION SCH ×2 (08:02→20:44)
[2020-02-17] MEDS: ENOXAPARIN 40 MG/0.4 ML SYRINGE SQ SCH (08:02)
[2020-02-17] MEDS: VIT A,C & E-LUTEIN-MINERALS 1 EACH TAB PO SCH ×2 (08:03→20:04)
[2020-02-17] MEDS: guaiFENesin 600 MG TABLET.ER PO SCH ×2 (08:03→20:03)
[2020-02-17] MEDS: LOSARTAN 50 MG TAB PO SCH (08:03)
[2020-02-17] MEDS: OXYBUTYNIN CHLORIDE 5 MG TAB PO SCH (08:03)
[2020-02-17] MEDS: SERTRALINE 100 MG TAB PO SCH (08:03)
[2020-02-17] MEDS: amLODIPine 10 MG TAB PO SCH (08:04)
[2020-02-17] MEDS: SODIUM CHLORIDE 0.9% 1,000 ML IV SCH (19:30)
[2020-02-17] MEDS: ATORVASTATIN 10 MG TAB PO SCH (20:04)
--- NOTE | 2020-02-17 22:30 | P.PN ---
Progress Note - Text Progress Note Date: 02/17/20 Chief Complaint: Short of breath History of presenting complaint: This is a very pleasant 79-year-old patient of Dr. Canada. Chronic stable medical conditions include hyperlipidemia, hypertension, osteoarthritis, hypothyroid, urinary incontinence. 2 weeks ago. Patient for about a week at least been having increasing cough short of breath and wheezing. Clear sputum. Green in color. Some fever and chills. Tired rundown. Admitted for the same. Patient long-standing smoker. Admitted with right lower lobe pneumonia, COPD exacerbation, sepsis. Started on nebulized bronchodilators, steroids, IV ceftriaxone. Today-a bit less short of breath wheezing. Some cough. Eating fine. Has been up to the bathroom. Review of systems: Was done for constitutional, cardiovascular, GI, pulmonary. relevant finding as above Active Medications Acetaminophen (Tylenol Tab) 650 mg PO Q6HR PRN PRN Reason: Mild Pain or Fever > 100.5 Albuterol Sulfate (Ventolin Hfa Inhaler) 2 puff INHALATION RT-QID [facility] Last Admin: 02/17/20 20:43 Dose: 2 puff Documented by: Amlodipine Besylate (Norvasc) 10 mg PO DAILY [facility] Last Admin: 02/17/20 08:04 Dose: 10 mg Documented by: Atorvastatin Calcium (Lipitor) 10 mg PO HS [facility] Last Admin: 02/17/20 20:04 Dose: 10 mg Documented by: Enoxaparin Sodium (Lovenox) 40 mg SQ DAILY [facility] Last Admin: 02/17/20 08:02 Dose: 40 mg Documented by: Fluticasone Propionate (Flovent 220 Mcg Inhaler) 2 puff INHALATION RT-BID [facility] Last Admin: 02/17/20 20:44 Dose: 2 puff Documented by: Guaifenesin (Mucinex) 1,200 mg PO Q12HR [facility] Last Admin: 02/17/20 20:03 Dose: 1,200 mg Documented by: Sodium Chloride (Saline 0.9%) 1,000 mls @ 50 mls/hr IV .Q20H [facility] Last Admin: 02/17/20 19:30 Dose: Not Given Documented by: Ceftriaxone Sodium 1 gm/ (Sodium Chloride) 50 mls @ 100 mls/hr IVPB Q24HR [facility] Last Admin: 02/17/20 08:02 Dose: 100 mls/hr Documented by: Ibuprofen (Motrin) 400 mg PO Q6HR PRN PRN Reason: Mild Pain or Fever > 100.5 Last Admin: 02/16/20 05:41 Dose: 400 mg Documented by: Levothyroxine Sodium (Synthroid) 25 mcg PO DAILY@0630 [facility] Last Admin: 02/17/20 05:00 Dose: 25 mcg Documented by: Losartan Potassium (Cozaar) 100 mg PO DAILY [facility] Last Admin: 02/17/20 08:03 Dose: 100 mg Documented by: Methylprednisolone Sodium Succinate (Solu-Medrol) 40 mg IV Q8H [facility] Last Admin: 02/17/20 20:04 Dose: 40 mg Documented by: Multivitamins/Minerals (Ivite) 1 each PO BID [facility] Last Admin: 02/17/20 20:04 Dose: 1 each Documented by: Naloxone HCl (Narcan) 0.2 mg IV Q2M PRN PRN Reason: Opioid Reversal Oxybutynin Chloride (Ditropan) 5 mg PO DAILY [facility] Last Admin: 02/17/20 08:03 Dose: 5 mg Documented by: Sertraline HCl (Zoloft) 100 mg PO DAILY [facility] Last Admin: 02/17/20 08:03 Dose: 100 mg Documented by: Physical examination: VITAL SIGNS: 98.2, 85, 17, 171/78, 90% on room air GENERAL: Sitting on bed, not in distress EYES: Pupils equal. Conjunctiva normal. HEENT: External appearance of nose and ears normal, oral cavity grossly normal. NECK: JVD not raised; masses not palpable. HEART: First and second heart sounds are normal; no edema. LUNGS: Respiratory rate increased, diminished breath sounds prolonged expiration less wheezing, occasional crackles ABDOMEN: Soft, nontender, liver spleen not palpable, no masses palpable. PSYCH: Alert and oriented x3; mood and affect slightly anxious MUSCULAR schedule: Evidence of OA especially in the hands INVESTIGATIONS, reviewed in the clinical context: White count 19 hemoglobin 10.5 potassium 3.9 creatinine 0.34 Previous testing White count 11.2 hemoglobin 12.7 and repeat 10.5 potassium 4.2 creatinine 0.44 LDH 840 pro-calcitonin 0.16 EKG tracing personally reviewed by me-normal sinus rhythm Chest x-ray film personally reviewed by me-right lower lobe pneumonia Assessment: -Right lower lobe pneumonia, suspect gram-negative orgasm, causing sepsis, improving -Chronic nicotine dependence patient cigarette smoker -Acute COPD exacerbation in a current smoker-slow to improve -Hyperlipidemia -Essential hypertension -Primary osteoarthritis -Hypothyroid -Chronic urinary incontinence -Normocytic anemia-cause unknown Plan: Continue, ceftriaxone Zithromax. Inhaled and IV steroids. Mucinex. Discussed with the patient. Expected in the hospital for at least 1 or 2 days more. Encouraged to be out of bed.
[2020-02-18 01:22] VITALS: PULSE 71
[2020-02-18] MEDS: methylPREDNISolone SOD SUCCI 40 MG/ML 1 ML VIAL IV SCH (04:57)
[2020-02-18] MEDS: LEVOTHYROXINE 25 MCG TAB PO SCH (04:57)
[2020-02-18] MEDS: SODIUM CHLORIDE 0.9% 1,000 ML IV SCH (04:58)
[2020-02-18 05:15] VITALS: RESP 16
[2020-02-18 07:53] VITALS: BP 165/53; TEMP 92.8
[2020-02-18] MEDS: ALBUTEROL HFA INHALER INHALATION SCH ×2 (07:55→11:29)
[2020-02-18] MEDS: FLUTICASONE 220 MCG INHALER INHALATION SCH (07:55)
[2020-02-18] MEDS: guaiFENesin 600 MG TABLET.ER PO SCH (08:22)
[2020-02-18] MEDS: ENOXAPARIN 40 MG/0.4 ML SYRINGE SQ SCH (08:22)
[2020-02-18] MEDS: LOSARTAN 50 MG TAB PO SCH (08:22)
[2020-02-18] MEDS: OXYBUTYNIN CHLORIDE 5 MG TAB PO SCH (08:22)
[2020-02-18] MEDS: VIT A,C & E-LUTEIN-MINERALS 1 EACH TAB PO SCH (08:22)
[2020-02-18] MEDS: SERTRALINE 100 MG TAB PO SCH (08:22)
[2020-02-18] MEDS: amLODIPine 10 MG TAB PO SCH (08:22)
--- NOTE | 2020-02-18 20:34 | P.DS ---
Providers Date of admission: 02/15/20 18:22 Expected date of discharge: 02/18/20 Attending physician: Bhanu Mendenhall Primary care physician: Willie Canada [facility] Course: Chief Complaint: Short of breath History of presenting complaint: This is a very pleasant 79-year-old patient of Dr. Canada. Chronic stable medical conditions include hyperlipidemia, hypertension, osteoarthritis, hypothyroid, urinary incontinence. 2 weeks ago. Patient for about a week at least been having increasing cough short of breath and wheezing. Clear sputum. Green in color. Some fever and chills. Tired rundown. Admitted for the same. Patient long-standing smoker. Admitted with right lower lobe pneumonia, COPD exacerbation, sepsis. Started on nebulized bronchodilators, steroids, IV ceftriaxone. Responded well. Today-feeling much better. Keen to go home. Symptoms improved. Tolerating diet.. Physical examination: VITAL SIGNS: 98.2, 77, 16, 165/53, 97% on 2 L GENERAL: Sitting up, comfortable EYES: Pupils equal. Conjunctiva normal. HEENT: External appearance of nose and ears normal, oral cavity grossly normal. NECK: JVD not raised; masses not palpable. HEART: First and second heart sounds are normal; no edema. LUNGS: Respiratory rate increased, diminished breath sounds ABDOMEN: Soft, nontender, liver spleen not palpable, no masses palpable. PSYCH: Alert and oriented x3; mood and affect slightly anxious MUSCULAR schedule: Evidence of OA especially in the hands INVESTIGATIONS, reviewed in the clinical context: White count 19 hemoglobin 10.5 potassium 3.9 creatinine 0.34 Previous testing White count 11.2 hemoglobin 12.7 and repeat 10.5 potassium 4.2 creatinine 0.44 LDH 840 pro-calcitonin 0.16 EKG tracing personally reviewed by me-normal sinus rhythm Chest x-ray film personally reviewed by me-right lower lobe pneumonia COVID 19 P/Cr-not detected Assessment: -Right lower lobe pneumonia, suspect gram-negative orgasm, causing sepsis, -Chronic nicotine dependence patient cigarette smoker -Acute COPD exacerbation in a current smoker- -Hyperlipidemia -Essential hypertension -Primary osteoarthritis -Hypothyroid -Chronic urinary incontinence -Normocytic anemia-cause unknown Disposition: Home Patient Condition at Discharge: Stable Plan - Discharge Summary Discharge Rx Participant: No New Discharge Prescriptions: New Cefuroxime Axetil [Ceftin] 500 mg PO BID 3 Days #6 tab predniSONE 10 mg PO DAILY #30 tab Ipratropium-Albuterol Nebulize [Duoneb 0.5 mg-3 mg/3 ml Soln] 0 ml INHALATION TID #90 neb Losartan-Hctz 50-12.5 mg [Hyzaar 50-12.5] 1 tab PO DAILY #30 tablet Budesonide-Formot 160-4.5 Mcg [Symbicort 160-4.5 Mcg Inhaler] 1 puff INHALATION BID #1 inhaler Nicotine 21Mg/24Hr Patch [Habitrol] 1 each TRANSDERM DAILY #14 patch guaiFENesin [Mucinex] 1,200 mg PO Q12HR #30 tablet.er Continue Levothyroxine Sodium [Synthroid] 25 mcg PO DAILY amLODIPine BES/OLMESARTAN MED [amLODIPine BES/OLMESARTAN MED 10-20 MG] 1 tab PO DAILY Lovastatin [Mevacor] 10 mg PO HS [place]-3 Fatty Acids/Fish Oil [Fish Oil 1,000 mg Softgel] 2 cap PO DAILY Sertraline HCl [Zoloft] 100 mg PO DAILY Oxybutynin Chloride [Ditropan] 5 mg PO DAILY Vit C/E/Zn/Coppr/Lutein/Zeaxan [Preservision Areds 2 Softgel] 1 cap PO BID Discharge Medication List Levothyroxine Sodium [Synthroid] 25 mcg PO DAILY 08/24/16 [History] Lovastatin [Mevacor] 10 mg PO HS 08/24/16 [History] [place]-3 Fatty Acids/Fish Oil [Fish Oil 1,000 mg Softgel] 2 cap PO DAILY 08/24/16 [History] amLODIPine BES/OLMESARTAN MED [amLODIPine BES/OLMESARTAN MED 10-20 MG] 1 tab PO DAILY 08/24/16 [History] Oxybutynin Chloride [Ditropan] 5 mg PO DAILY 02/15/20 [History] Sertraline HCl [Zoloft] 100 mg PO DAILY 02/15/20 [History] Vit C/E/Zn/Coppr/Lutein/Zeaxan [Preservision Areds 2 Softgel] 1 cap PO BID 02/15/20 [History] Budesonide-Formot 160-4.5 Mcg [Symbicort 160-4.5 Mcg Inhaler] 1 puff INHALATION BID #1 inhaler 02/18/20 [Rx] Cefuroxime Axetil [Ceftin] 500 mg PO BID 3 Days #6 tab 02/18/20 [Rx] Ipratropium-Albuterol Nebulize [Duoneb 0.5 mg-3 mg/3 ml Soln] 0 ml INHALATION TID #90 neb 02/18/20 [Rx] Losartan-Hctz 50-12.5 mg [Hyzaar 50-12.5] 1 tab PO DAILY #30 tablet 02/18/20 [Rx] Nicotine 21Mg/24Hr Patch [Habitrol] 1 each TRANSDERM DAILY #14 patch 02/18/20 [Rx] guaiFENesin [Mucinex] 1,200 mg PO Q12HR #30 tablet.er 02/18/20 [Rx] predniSONE 10 mg PO DAILY #30 tab 02/18/20 [Rx] Follow up Appointment(s)/Referral(s): Willie Canada DO [Primary Care Provider] - 02/19/20 1:30 pm (This Will be a telehealth call) Patient Instructions/Handouts: Viral Pneumonia (DC) Discharge Disposition: HOME SELF-CARE
== END 2020-02-18 12:29 | disposition home or self-care (01) | DRG 871 ==
LOC: EC 16:59 → 4SSUR 18:22
PROVIDERS: ADMIT Hospitalist; ATTEND Hospitalist
DX: A41.59 Other Gram-negative sepsis (principal); J15.6 Pneumonia due to other Gram-negative bacteria; J44.0 Chronic obstructive pulmonary disease with (acute) lower respiratory infection; J44.1 Chronic obstructive pulmonary disease with (acute) exacerbation; E03.9 Hypothyroidism, unspecified; E78.5 Hyperlipidemia, unspecified; F17.210 Nicotine dependence, cigarettes, uncomplicated; F32.9 Major depressive disorder, single episode, unspecified; I10 Essential (primary) hypertension; M19.91 Primary osteoarthritis, unspecified site; Z20.828 Contact with and (suspected) exposure to other viral communicable diseases; R32 Unspecified urinary incontinence; D64.9 Anemia, unspecified; Z79.890 Hormone replacement therapy; Z79.899 Other long term (current) drug therapy; Z85.828 Personal history of other malignant neoplasm of skin; Z90.710 Acquired absence of both cervix and uterus
CPT/HCPCS: 36415; 71046; 80048; 80053; 81001; 82728; 83605; 83615; 83735; 84145; 85025; 85610; 85730; 86140; 87040; 93005; 94640; 96365; 99285

== ENCOUNTER → 2021-01-25 | Outpatient (CLI) | payer MEDICARE ==
--- NOTE | 2021-01-25 08:56 | XR ---
EXAMINATION TYPE: XR chest 2V DATE OF EXAM: 01/25/2021 COMPARISON: 2 view chest x-ray 02/15/2020 HISTORY: R91.8 Radiologic infiltrate of lung TECHNIQUE: Frontal and lateral views of the chest are obtained. FINDINGS: There has been interval resolution of the airspace disease seen bilaterally within the low er lobes. Prominent lung volumes suggest COPD. Prominence of pulmonary artery may be indicative of pu lmonary artery hypertension. There is eventration right hemidiaphragm. Heart is not enlarged. Aorta i s dense, there are coronary artery calcifications suspected. IMPRESSION: Resolution of patient's pneumonia. Correlate for pulmonary hypertension, coronary artery disease, COPD
== END | disposition home or self-care (01) ==
LOC: RADXRMAIN 08:25
PROVIDERS: ATTEND Family Medicine
DX: R91.8 Other nonspecific abnormal finding of lung field (principal)
CPT/HCPCS: 71046

== ENCOUNTER 2024-12-25 17:45 | Emergency (ER) | payer MEDICARE ==
[2024-12-25 19:46] LABS: Basophils # (A) 0.03 10*3/uL (0.00-0.10); Basophils % (A) 0.7 %; Eosinophils # (A) 0.04 10*3/uL (0.04-0.35); Eosinophils % (A) 0.9 %; HCT 20.8 % (37.2-46.3); Lymphocytes # (A) 1.03 10*3/uL (0.90-5.00); MCH 17.4 pg (27.0-32.0); MCHC 27.9 g/dL (32.0-37.0); MCV 62.5 fL (80.0-97.0); Mean Platelet Volume 8.9 fL (9.5-12.2); Neutrophils # (A) 2.89 10*3/uL (1.80-7.70); Neutrophils % (A) 67.2 %; Platelet Count 291 10*3/uL (140-440); RBC 3.33 10*6/uL (4.10-5.20); RDW 19.6 % (11.5-14.5)
--- NOTE | 2024-12-25 19:52 | ED ---
GI Bleed HPI - General Chief complaint: GI Bleed Stated complaint: Abn Labs Time Seen by Provider: 12/25/24 18:50 Source: patient Mode of arrival: ambulatory Limitations: no limitations - History of Present Illness Initial comments: 84-year-old female presents emergency department with low hemoglobin. Patient reported to fatigue to her primary care doctor. Laboratory studies were conducted. Patient was called to say that her hemoglobin was low. Patient has never had low hemoglobin before. She has never required a blood transfusion. Other than fatigue, the patient has not had any symptoms. She denies chest pain or shortness of breath. No abdominal pain. Denies any black or bloody stools. Denies any epistaxis, hematuria or bleeding of any source. 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, precipitating or modifying factors - Related Data Home Medications Medication Instructions Recorded Confirmed Levothyroxine Sodium [Synthroid] 25 mcg PO DAILY 08/24/16 12/25/24 Sertraline HCl [Zoloft] 100 mg PO DAILY 02/15/20 12/25/24 Vit C/E/Zn/Coppr/Lutein/Zeaxan 1 cap PO HS 02/15/20 12/25/24 [Preservision Areds 2 Softgel] oxyBUTYnin chloride [Ditropan] 5 mg PO DAILY 02/15/20 12/25/24 Albuterol Nebulized [Ventolin 2.5 mg INHALATION RT-Q6H PRN 12/25/24 12/25/24 Nebulized] Albuterol Sulfate [Albuterol 2 puff PO RT-Q6H PRN 12/25/24 12/25/24 Sulfate Hfa] Aspirin EC [Ecotrin Low Dose] 81 mg PO HS 12/25/24 12/25/24 Benazepril [Lotensin] 10 mg PO DAILY 12/25/24 12/25/24 Cholecalciferol (Vitamin D3) 50 mcg PO DAILY 12/25/24 12/25/24 [Vitamin D3 (50 Mcg = 2000 Iu)] Clotrimazole Cream [Lotrimin Cream] 1 applic TOPICAL BID PRN 12/25/24 12/25/24 Fish Oil/Dha/Epa [Fish Oil 1,200 2 cap PO HS 12/25/24 12/25/24 mg Fish Oil] Fluticasone/Umeclidin/Vilanter 1 puff INHALATION RT-DAILY 12/25/24 12/25/24 [Trelegy Ellipta 200-62.5-25] Latanoprost [Latanoprost 0.005%] 1 drop BOTH EYES HS 12/25/24 12/25/24 Lovastatin [Mevacor] 10 mg PO HS 12/25/24 12/25/24 amLODIPine [Norvasc] 5 mg PO DAILY 12/25/24 12/25/24 traMADol HCL 50 mg PO Q6H PRN 12/25/24 12/25/24 traZODone HCL [Desyrel] 50 mg PO HS 12/25/24 12/25/24 Previous Rx's Medication Instructions Recorded Docusate [Colace] 100 mg PO BID #60 capsule 12/25/24 Ferrous Sulfate [Iron] 325 mg PO DAILY #30 tab 12/25/24 Allergies Allergy/AdvReac Type Severity Reaction Status Date / Time No Known Allergies Allergy Verified 12/25/24 20:44 Review of Systems ROS Statement: Those systems with pertinent positive or pertinent negative responses have been documented in the HPI. ROS Other: All systems not noted in ROS Statement are negative. Past Medical History Past Medical History: Cancer, COPD, Hyperlipidemia, Hypertension, Osteoarthritis (OA), Thyroid Disorder Additional Past Medical History / Comment(s): urinary incontinence, hx skin cancer History of Any Multi-Drug Resistant Organisms: None Reported Past Surgical History: Hysterectomy, Orthopedic Surgery Additional Past Surgical History / Comment(s): skin cancer removed from nose and shoulder, misael cataracts, rotator cuff left shoulder Past Anesthesia/Blood Transfusion Reactions: No Reported Reaction Past Psychological History: Depression Smoking Status: Current every day smoker Past Alcohol Use History: None Reported Past Drug Use History: None Reported - Past Family History Mother Family Medical History: Cancer Additional Family Medical History / Comment(s): colon Father History Unknown: Yes Additional Family Medical History / Comment(s): Pt was raised by her step father. General Exam Limitations: no limitations General appearance: alert, in no apparent distress Head exam: Present: atraumatic, normocephalic, normal inspection Eye exam: Present: normal appearance, PERRL, EOMI. Absent: scleral icterus, conjunctival injection, periorbital swelling ENT exam: Present: normal exam, mucous membranes moist Neck exam: Present: normal inspection. Absent: tenderness, meningismus, lymphadenopathy Respiratory exam: Present: normal lung sounds bilaterally. Absent: respiratory distress, wheezes, rales, rhonchi, stridor Cardiovascular Exam: Present: regular rate, normal rhythm, normal heart sounds. Absent: systolic murmur, diastolic murmur, rubs, gallop, clicks GI/Abdominal exam: Present: soft, normal bowel sounds. Absent: distended, tenderness, guarding, rebound, rigid Rectal exam: Present: normal rectal tone, heme (-) stool. Absent: black stool, bloody stool Extremities exam: Present: normal inspection, full ROM, normal capillary refill. Absent: tenderness, pedal edema, joint swelling, calf tenderness Back exam: Present: normal inspection Neurological exam: Present: alert, oriented X3, CN II-XII intact Psychiatric exam: Present: normal affect, normal mood Skin exam: Present: warm, dry, intact, normal color. Absent: rash Course Vital Signs 12/25/24 12/25/24 12/25/24 18:06 20:51 21:01 Temperature 97.9 F 98.4 F 98.4 F Pulse Rate 89 75 73 Respiratory 20 18 18 Rate Blood Pressure 118/71 178/64 175/71 O2 Sat by Pulse 99 96 96 Oximetry 12/25/24 12/25/24 12/25/24 21:21 22:20 23:21 Temperature 98.6 F 98.4 F Pulse Rate 65 65 61 Respiratory 18 18 18 Rate Blood Pressure 185/62 184/64 179/58 O2 Sat by Pulse 97 97 97 Oximetry 12/25/24 12/25/24 12/25/24 23:40 23:44 23:50 Temperature 98.5 F 98.5 F 98.7 F Pulse Rate 64 64 75 Respiratory 18 18 18 Rate Blood Pressure 191/85 191/85 181/93 O2 Sat by Pulse 95 95 96 Oximetry 12/26/24 12/26/24 12/26/24 00:10 00:52 02:10 Temperature 98.7 F 98.7 F Pulse Rate 66 63 63 Respiratory 18 18 18 Rate Blood Pressure 189/69 192/82 198/78 O2 Sat by Pulse 96 96 96 Oximetry Medical Decision Making - Medical Decision Making Was pt. sent in by a medical professional or institution (, PA, DEHYDRATION PLANT OPERATOR, urgent care, hospital, or [place] health care facility...) When possible be specific @ -Patient sent in by her primary care doctor Did you speak to anyone other than the patient for history (EMS, parent, family, police, friend...)? What history was obtained from this source @ -Spoke with the son and [id number] Did you review nursing and triage notes (agree or disagree)? Why? @ -I reviewed and agree with nursing and triage notes Were old charts reviewed (outside hosp., previous admission, EMS record, old EKG, old radiological studies, urgent care reports/EKG's, [place] health care facility records)? Report findings @ -No old charts were reviewed Differential Diagnosis (chest pain, altered mental status, abdominal pain women, abdominal pain men, vaginal bleeding, weakness, fever, dyspnea, syncope, headache, dizziness, GI bleed, back pain, seizure, CVA, palpatations, mental health, musculoskeletal)? @ -GI bleed, iron deficiency anemia, acute blood loss anemia EKG interpreted by me (3pts min.). @ -Not done X-rays interpreted by me (1pt min.). @ -None done CT interpreted by me (1pt min.). @ -None done U/S interpreted by me (1pt. min.). @ -None done What testing was considered but not performed or refused? (CT, X-rays, U/S, labs)? Why? @ -None What meds were considered but not given or refused? Why? @ -None Did you discuss the management of the patient with other professionals (professionals i.e. , PA, DEHYDRATION PLANT OPERATOR, lab, RT, psych nurse, social media sr strategy manager, operations and maintenance supervisor, teacher, articulation officer, business case analyst)? Give summary @ -No Was smoking cessation discussed for >3mins.? @ -No Was critical care preformed (if so, how long)? @ -No Were there social determinants of health that impacted care today? How? (Homelessness, low income, unemployed, alcoholism, drug addiction, transportati on, low edu. Level, literacy, decrease access to med. care, halfway, rehab)? @ -No Was there de-escalation of care discussed even if they declined (Discuss DNR or withdrawal of care, Hospice)? DNR status @ -No What co-morbidities impacted this encounter? (DM, HTN, Smoking, COPD, CAD, Cancer, CVA, ARF, Chemo, Hep., AIDS, mental health diagnosis, sleep apnea, morbid obesity)? @ -None Was patient admitted / discharged? Hospital course, mention meds given and route, prescriptions, significant lab abnormalities, going to OR and other pertinent info. @ -Upon arrival patient seen and evaluated in room 4. Thorough history and physical exam was performed. IV was established. Laboratory studies are conducted. I did perform an occult test which was negative. Results are discussed with the patient. She would like to go home after her blood transfusion. There is some concern for iron deficiency. Patient will be transfused 2 units and discharged. She is to follow-up with her primary care kiara love for further management of her anemia. I will place her on iron tablets. Patient discharged in stable condition Undiagnosed new problem with uncertain prognosis? @ -No Drug Therapy requiring intensive monitoring for toxicity (Heparin, Nitro, Insulin, Cardizem)? @ -No Were any procedures done? @ -No Diagnosis/symptom? @ -Acute anemia status post 2 units PRBCs, suspected iron deficiency Acute, or Chronic, or Acute on Chronic? @ -Acute Uncomplicated (without systemic symptoms) or Complicated (systemic symptoms)? @ -Complicated Side effects of treatment? @ -No Exacerbation, Progression, or Severe Exacerbation? @ -No Poses a threat to life or bodily function? How? (Chest pain, [place], [place], pneumonia, PE, COPD, DKA, ARF, appy, cholecystitis, CVA, Diverticulitis, Homicidal, Suicidal, threat to staff... and all critical care pts) @ -Yes this patient is markedly anemic - Lab Data Result diagrams: 12/25/24 19:30 12/25/24 19:39 Lab Results 12/25/24 12/25/24 12/25/24 Range/Units 19:25 19:30 19:30 WBC 4.30 L (4.50-10.00) 10*3/uL RBC 3.33 L (4.10-5.20) 10*6/uL Hgb 5.8 L* (12.0-15.0) g/dL Hct 20.8 L (37.2-46.3) % MCV 62.5 L (80.0-97.0) fL MCH 17.4 L (27.0-32.0) pg MCHC 27.9 L (32.0-37.0) g/dL Plt Count 291 (140-440) 10*3/uL MPV 8.9 L (9.5-12.2) fL Immature Gran % (Auto) 0.2 % Neutrophils % 67.2 % Lymphocytes % 24.0 % Monocytes % 7.0 % Eosinophils % 0.9 % Basophils % 0.7 % Immature Gran # 0.01 (0.00-0.04) 10*3/uL Neutrophils # 2.89 (1.80-7.70) 10*3/uL Lymphocytes # 1.03 (0.90-5.00) 10*3/uL Monocytes # 0.30 (0.20-1.00) 10*3/uL Eosinophils # 0.04 (0.04-0.35) 10*3/uL Basophils # 0.03 (0.00-0.10) 10*3/uL PT (10.0-12.5) sec INR (<1.2) APTT (22.0-30.0) sec Sodium (137-145) mmol/L Potassium (3.5-5.1) mmol/L Chloride (98-107) mmol/L Carbon Dioxide (22-30) mmol/L Anion Gap mmol/L BUN (7-17) mg/dL Creatinine (0.52-1.04) mg/dL Est GFR (CKD-EPI)AfAm (>60 ml/min/1.73 sqM) Est GFR (CKD-EPI)NonAf (>60 ml/min/1.73 sqM) Glucose (74-99) mg/dL Plasma Lactic Acid Missael (0.7-2.0) mmol/L Calcium (8.4-10.2) mg/dL Iron (50-170) UG/DL TIBC (228-460) UG/DL % Saturation (12.00-45.00) Transferrin (204.0-354.0) mg/dL Total Bilirubin (0.2-1.3) mg/dL AST (14-36) U/L ALT (4-34) U/L Alkaline Phosphatase (38-126) U/L Troponin I (0.000-0.034) ng/mL Total Protein (6.3-8.2) g/dL Albumin (3.5-5.0) g/dL Stool Occult Blood (Negative) Blood Type O Positive Blood Type Confirm O Positive Blood Type Recheck No Previous Record Bld Type Recheck Status CABO Indicated Antibody Screen NEGATIVE Crossmatch See Detail Spec Expiration Date 12/28/2024 - 232912/25/24 12/25/24 12/25/24 Range/Units 19:39 19:39 19:39 WBC (4.50-10.00) 10*3/uL RBC (4.10-5.20) 10*6/uL Hgb (12.0-15.0) g/dL Hct (37.2-46.3) % MCV (80.0-97.0) fL MCH (27.0-32.0) pg MCHC (32.0-37.0) g/dL Plt Count (140-440) 10*3/uL MPV (9.5-12.2) fL Immature Gran % (Auto) % Neutrophils % % Lymphocytes % % Monocytes % % Eosinophils % % Basophils % % Immature Gran # (0.00-0.04) 10*3/uL Neutrophils # (1.80-7.70) 10*3/uL Lymphocytes # (0.90-5.00) 10*3/uL Monocytes # (0.20-1.00) 10*3/uL Eosinophils # (0.04-0.35) 10*3/uL Basophils # (0.00-0.10) 10*3/uL PT 10.5 (10.0-12.5) sec INR 0.9 (<1.2) APTT 20.7 L (22.0-30.0) sec Sodium 132 L (137-145) mmol/L Potassium 4.5 (3.5-5.1) mmol/L Chloride 101 (98-107) mmol/L Carbon Dioxide 25 (22-30) mmol/L Anion Gap 6 mmol/L BUN 15 (7-17) mg/dL Creatinine 0.67 (0.52-1.04) mg/dL Est GFR (CKD-EPI)AfAm >90 (>60 ml/min/1.73 sqM) Est GFR (CKD-EPI)NonAf 80 (>60 ml/min/1.73 sqM) Glucose 88 (74-99) mg/dL Plasma Lactic Acid Missael (0.7-2.0) mmol/L Calcium 9.4 (8.4-10.2) mg/dL Iron (50-170) UG/DL TIBC (228-460) UG/DL % Saturation (12.00-45.00) Transferrin (204.0-354.0) mg/dL Total Bilirubin 0.4 (0.2-1.3) mg/dL AST 29 (14-36) U/L ALT 10 (4-34) U/L Alkaline Phosphatase 112 (38-126) U/L Troponin I (0.000-0.034) ng/mL Total Protein 6.3 (6.3-8.2) g/dL Albumin 4.1 (3.5-5.0) g/dL Stool Occult Blood Negative (Negative) Blood Type Blood Type Confirm Blood Type Recheck Bld Type Recheck Status Antibody Screen Crossmatch Spec Expiration Date 12/25/24 12/25/24 12/25/24 Range/Units 19:39 19:39 19:39 WBC (4.50-10.00) 10*3/uL RBC (4.10-5.20) 10*6/uL Hgb (12.0-15.0) g/dL Hct (37.2-46.3) % MCV (80.0-97.0) fL MCH (27.0-32.0) pg MCHC (32.0-37.0) g/dL Plt Count (140-440) 10*3/uL MPV (9.5-12.2) fL Immature Gran % (Auto) % Neutrophils % % Lymphocytes % % Monocytes % % Eosinophils % % Basophils % % Immature Gran # (0.00-0.04) 10*3/uL Neutrophils # (1.80-7.70) 10*3/uL Lymphocytes # (0.90-5.00) 10*3/uL Monocytes # (0.20-1.00) 10*3/uL Eosinophils # (0.04-0.35) 10*3/uL Basophils # (0.00-0.10) 10*3/uL PT (10.0-12.5) sec INR (<1.2) APTT (22.0-30.0) sec Sodium (137-145) mmol/L Potassium (3.5-5.1) mmol/L Chloride (98-107) mmol/L Carbon Dioxide (22-30) mmol/L Anion Gap mmol/L BUN (7-17) mg/dL Creatinine (0.52-1.04) mg/dL Est GFR (CKD-EPI)AfAm (>60 ml/min/1.73 sqM) Est GFR (CKD-EPI)NonAf (>60 ml/min/1.73 sqM) Glucose (74-99) mg/dL Plasma Lactic Acid Missael 0.8 (0.7-2.0) mmol/L Calcium (8.4-10.2) mg/dL Iron 13 L (50-170) UG/DL TIBC 487 H (228-460) UG/DL % Saturation 2.67 L (12.00-45.00) Transferrin 348.0 (204.0-354.0) mg/dL Total Bilirubin (0.2-1.3) mg/dL AST (14-36) U/L ALT (4-34) U/L Alkaline Phosphatase (38-126) U/L Troponin I <0.012 (0.000-0.034) ng/mL Total Protein (6.3-8.2) g/dL Albumin (3.5-5.0) g/dL Stool Occult Blood (Negative) Blood Type Blood Type Confirm Blood Type Recheck Bld Type Recheck Status Antibody Screen Crossmatch Spec Expiration Date Disposition Clinical Impression: Microcytic anemia Disposition: HOME SELF-CARE Condition: Stable Instructions (If sedation given, give patient instructions): Anemia (ED) Additional Instructions: Your blood work has been sent for iron studies. Please start the iron supplement tomorrow. The iron may turn your stools dark. Also take the stool softener as it may constipate you. Follow-up with Dr. Yousif for a scope. Follow-up with your doctor for repeat hemoglobin within 1 week. Return for any new or worsening symptoms Prescriptions: Docusate [Colace] 100 mg PO BID #60 capsule Ferrous Sulfate [Iron] 325 mg PO DAILY #30 tab Is patient prescribed a controlled substance at d/c from ED?: No Referrals: Willie Canada DO [Primary Care Provider] - 1-2 days Dacia Yousif MD [STAFF PHYSICIAN] - 1-2 days Time of Disposition: 21:15
[2024-12-25 19:58] LABS: ALT 10 U/L (4-34); AST 29 U/L (14-36); African American GFR (CKD) >90 (>60 ml/min/1.73 sqM); Albumin 4.1 g/dL (3.5-5.0); Alkaline Phosphatase 112 U/L (38-126); Anion Gap 6 mmol/L; Blood Urea Nitrogen 15 mg/dL (7-17); Calcium 9.4 mg/dL (8.4-10.2); Carbon Dioxide 25 mmol/L (22-30); Chloride 101 mmol/L (98-107); Glucose 88 mg/dL (74-99); Non-African American GFR(CKD) 80 (>60 ml/min/1.73 sqM); Potassium 4.5 mmol/L (3.5-5.1); Sodium 132 mmol/L (137-145); Total Bilirubin 0.4 mg/dL (0.2-1.3); Total Protein 6.3 g/dL (6.3-8.2)
[2024-12-25 19:59] LABS: HGB 5.8 g/dL (12.0-15.0)
[2024-12-25 20:08] LABS: INR 0.9 (<1.2); Prothrombin Time 10.5 sec (10.0-12.5)
[2024-12-25 20:09] LABS: Partial Thromboplastin Time 20.7 sec (22.0-30.0)
[2024-12-25 20:58] VITALS: RESP 18
[2024-12-25 23:54] VITALS: TEMP 98.7
[2024-12-26 00:53] VITALS: PULSE 63
[2024-12-26 02:03] LABS: % Iron Saturation 2.67 (12.00-45.00)
[2024-12-26 02:16] VITALS: BP 198/78
== END 2024-12-26 02:15 | disposition home or self-care (01) ==
LOC: EC 17:45
DX: D50.9 Iron deficiency anemia, unspecified (principal); F17.200 Nicotine dependence, unspecified, uncomplicated
CPT/HCPCS: 36415; 86900; 86901; 80053; 83540; 83550; 83605; 84484; 85025; 85610; 85730; 86850; 86920; 82272; 99284; 36430; P9016

== ENCOUNTER → 2025-01-08 | Day surgery (SDC) | payer MEDICARE ==
[~2025-01-08] MED LIST: LACTATED RINGERS 1,000 ML IV SCH; PROPOFOL 10 MG/ML 20 ML VIAL IV ONE
[2025-01-08] MEDS: IV FLUID CONTINUATION 1,000 ML IV ONE (07:15)
[2025-01-08 07:42] VITALS: TEMP 98.2
--- NOTE | 2025-01-08 08:27 | P.PCN ---
Date of Procedure: 01/08/25 Procedure(s) Performed: Brief history: Patient is a pleasant 84-year-old white female scheduled for an elective upper endoscopy as well as colonoscopy as a part of evaluation of iron deficiency anemia Procedure performed: Esophagogastroduodenoscopy with biopsy. Colonoscopy Preoperative diagnosis: Iron deficient anemia Anesthesia: MAC Procedure: After informed consent was obtained from the patient was brought into the endoscopy unit and IV sedation was administered by anesthesia under continuous monitoring. Initially upper endoscopy was done. The Olympus GF 160 video endoscope was inserted inserted into the mouth and esophagus intubated without any difficulty and was gradually advanced into the stomach and duodenum and carefully examined. The bulb and second part of the duodenum appeared normal. Biopsies were done from the duodenum to rule out celiac disease. The scope was then withdrawn into the stomach adequately insufflated with air and upon careful examination the antrum had a 1.5 cm clean-based antral ulcer in the prepyloric area associate with gastritis and biopsies were done from this area. Mucosa of the body, cardia and fundus appeared normal. The scope was then withdrawn into the esophagus. The GE junction was located at 40 cm to the incisors. It appeared regular with no erythema erosions or ulcerations. Rest of the esophagus appeared normal. Patient tolerated the procedure well. At this time the patient continued to remain sedation. Initial digital rectal examination was normal. Olympus CF 160 video colonoscope was then inserted into the rectum and gradually advanced to the cecum without any difficulty. Careful examination was performed as the scope was gradually being withdrawn. The prep was excellent. The cecum, ascending colon, transverse colon, descending colon, sigmoid colon and rectum appeared normal. Scattered sigmoid diverticulosis. Retroflexion was performed in the rectum and no lesions were noted. Patient tolerated the procedure well. Impression: 1. Upper endoscopy revealed 1.5 cm clean-based gastric antral ulcer in the pre pyloric area with gastritis status post biopsy 2. Colonoscopy revealed scattered, diverticulosis but no evidence of colorectal neoplasia Recommendations: Findings of this examination were discussed with the patient as well as her family. She was advised to start on omeprazole 20 mg daily and avoid NSAIDs. Follow-up with the biopsy results. She was advised to avoid NSAIDs.
[2025-01-08 09:01] VITALS: BP 171/71; PULSE 56; RESP 16
== END ==
LOC: ORWHC2ENDO 07:00
PROVIDERS: ATTEND Internal Medicine Gastroenterology
DX: D50.9 Iron deficiency anemia, unspecified (principal); K29.70 Gastritis, unspecified, without bleeding; K25.9 Gastric ulcer, unspecified as acute or chronic, without hemorrhage or perforation; K31.89 Other diseases of stomach and duodenum; K57.30 Diverticulosis of large intestine without perforation or abscess without bleeding; I10 Essential (primary) hypertension; E78.5 Hyperlipidemia, unspecified; J44.9 Chronic obstructive pulmonary disease, unspecified; E07.9 Disorder of thyroid, unspecified; F32.A Depression, unspecified; F17.200 Nicotine dependence, unspecified, uncomplicated; Z79.890 Hormone replacement therapy; Z79.899 Other long term (current) drug therapy
CPT/HCPCS: 88305; 88342; 45378; 43239; J2704